=== PATIENT | male | born 1965 | race Caucasian/White ===

== ENCOUNTER → 2016-09-02 | Outpatient (CLI) | payer OTHER ==
[~2016-09-02] MED LIST: LOVA40TA2 PO; METF500T4 PO; NIAC10002 PO; OLME20TA22 PO
--- NOTE | 2016-09-03 12:40 | ECHOCARDIOGRAPHY REPORT ---
PROCEDURE PHYSICIAN: TJ PANCHAL DATE OF PROCEDURE: 09/02/2016 TWO DIMENSIONAL ECHOCARDIOGRAM REPORT PRIMARY PHYSICIAN: Dr. Shayan Calzada OTHER PHYSICIAN: REFERRING PHYSICIAN: ORDERING PHYSICIAN: INDICATION FOR THE PROCEDURE: Shortness of breath MEASUREMENTS DERIVED VALUES LV DIAMETER (LAX) NORMALS NORMALS Diastolic 4.8 (3.6-5.2) Eject. Fract. 60% (60%+/-6%) Systolic (2.3-3.9) Diastolic Vol. % Shortening (0.22-0.42) Systolic Vol. Aortic Root IVS THICKNESS Diastolic 1.2 (0.6-1.1) LVPW THICKNESS Diastolic 1.2 (0.6-1.1) LA DIAMETER Systolic 4.0 (2.1-3.7) FINDINGS: 1. Technical quality is good. 2. The left ventricle is normal in size with normal contractility. Systolic function appeared to be normal. Estimated ejection fraction 60%. 3. The left atrium is normal in size. No clot or thrombus was seen in the left atrium. 4. The right atrium and right ventricle are normal in size. No clot or thrombus were seen within the right side. 5. Mitral valve is normal in morphology with mild mitral regurgitation noted by color Doppler flow. No mitral valve prolapse. No mitral valve stenosis. 6. Aortic valve is trileaflet with normal opening and closing pattern. No significant aortic stenosis or regurgitation was seen. 7. Tricuspid valve is normal in morphology with mild tricuspid regurgitation noted by color Doppler flow. Doppler across tricuspid valve estimated pulmonary artery pressure of 22+ right atrial pressure. 8. Pulmonic valve is functioning normally. 9. No pericardial effusion. CONCLUSION: 1. Normal left ventricular size and systolic function. Estimated ejection fraction 60%. 2. Mild mitral and tricuspid regurgitation. 3. Estimated pulmonary artery pressure of 30 mmHg. Job ID: [id number] Dictated Date: 09/03/2016 11:51:03 Fertilizer Loader Date: 09/03/2016 12:35:56 / john
== END ==
LOC: CARD 08:20
PROVIDERS: ATTEND Internal Medicine Cardiovascular Disease
DX: Z01.818 Encounter for other preprocedural examination (principal); E78.2 Mixed hyperlipidemia; I10 Essential (primary) hypertension; E66.9 Obesity, unspecified; R06.02 Shortness of breath; Z82.49 Family history of ischemic heart disease and other diseases of the circulatory system; Z87.891 Personal history of nicotine dependence
CPT/HCPCS: 93306

== ENCOUNTER → 2016-09-03 | Outpatient (CLI) | payer OTHER ==
[~2016-09-03] VITALS: Ht 182.9 cm; Wt 124.7 kg
[~2016-09-03] MED LIST changes: +CATHETER FLUSH 10 ML SYR IV PRN
[2016-09-03 13:36] VITALS: BP 119/68
[2016-09-03 13:39] VITALS: BP 160/72
[2016-09-03 13:47] VITALS: BP 170/49
--- NOTE | 2016-09-03 20:49 | STRESS TEST ---
PROCEDURE PHYSICIAN: TJ PANCHAL DATE OF PROCEDURE: 09/03/2016 EXERCISE MYOVIEW STRESS TEST REPORT REFERRING PHYSICIAN: Dr. Shayan Calzada. INDICATION FOR THE PROCEDURE: Shortness of breath. BASELINE HEART RATE: 66 BASELINE BLOOD PRESSURE: 140/69 BASELINE EKG: Sinus rhythm with no ischemic changes. SUMMARY: The patient was injected with 10.03 mCi of technetium 99 Myoview and the resting images were obtained. Then the patient started exercising with a baseline heart rate, blood pressure, EKG mentioned above. At minute 7 and 30 seconds, he was injected with 29.8 mCi of technetium 99 Myoview. With peak exercise level, the patient started having ventricular couplets. He exercised for a total of 8 minutes 26 seconds on standard Nav protocol. Total of 10.1 METs, achieving maximum heart rate of 149, which is 88% of maximum expected heart rate. With peak exercise level, EKG was showing [address] depression in leads II, aVF V3, V4. During recovery, heart rate and blood pressure returned to baseline. EKG returned to baseline. The resting and stress images were reviewed and compared in the short axis, horizontal long axis, and vertical long axis views. Review of the images showed diaphragmatic attenuation with typical male pattern. No significant ischemia or infarction on SPECT images. SSS is 0. TID value 1.05. On the gated images, the left ventricle appeared to be normal size with normal contractility. Calculated ejection fraction 62%. CONCLUSION: 1. Good exercise tolerance a total of 8 minutes 25 seconds on standard Nav protocol. Total of 10.1 METs, achieving 88% of maximum expected heart rate. 2. Appropriate heart rate and blood pressure response to exercise. Returned to baseline during recovery. 3. Nondiagnostic EKG changes with exercise. Returned to baseline during recovery. 4. Typical male pattern with no ischemia or infarction on SPECT images. 5. Normal left ventricular size with normal contractility. Calculated ejection fraction 62%. Job ID: [id number] Dictated Date: 09/03/2016 16:47:31 Pet Stylist Date: 09/03/2016 20:45:47 / chuy
== END ==
LOC: CARD 11:18
PROVIDERS: ATTEND Internal Medicine Cardiovascular Disease
DX: Z01.818 Encounter for other preprocedural examination (principal); R06.02 Shortness of breath; E78.2 Mixed hyperlipidemia; I10 Essential (primary) hypertension; E66.9 Obesity, unspecified; Z82.49 Family history of ischemic heart disease and other diseases of the circulatory system; Z87.891 Personal history of nicotine dependence
CPT/HCPCS: 78452; 93017

== ENCOUNTER 2020-09-04 07:48 | Outpatient (CLI) | payer OTHER ==
[~2020-09-04] VITALS: Ht 182.9 cm; Wt 104.5 kg
[~2020-09-04 07:48] MED LIST changes: -ACHD5005 PO; -MULT-1056 PO
[2020-09-04] MEDS ORDERED: MULT-1056 PO (11:06)
== END 2020-09-04 11:14 | disposition home or self-care (01) ==
LOC: PREOP 07:48
PROVIDERS: ATTEND Surgery
DX: Z01.818 Encounter for other preprocedural examination (principal)

== ENCOUNTER → 2020-09-04 | Outpatient (CLI) | payer OTHER ==
[~2020-09-04] MED LIST changes: +ACHD5005 PO; -CATHETER FLUSH 10 ML SYR IV PRN; +METF-397 PO; -METF500T4 PO; +MULT-1056 PO; +OLME20TA21 PO; -OLME20TA22 PO
--- NOTE | 2020-09-04 19:30 | Diagnostic Imaging Report ---
EXAM: PET/CT INDICATION: Malignant neoplasm sigmoid colon. TECHNIQUE: PET/CT imaging was obtained from the base of the skull through the pelvis after the administration of 14.17 mCi of F-18 fluorodeoxyglucose injected into the right antecubital fossa. Limited CT imaging was utilized for localization and attenuation correction purposes. The low energy CT utilized for attenuation correction is not considered to be of high enough spatial resolution to allow in and of itself a separate anatomical analysis. Height: 6 feet. Weight: 228 Blood glucose 97. COMPARISON: There are no prior PET/CT exams or cross-sectional imaging studies available for comparison. By history, the patient has a recent diagnosis of sigmoid colon carcinoma. Images through the pelvis show a bulky 6.4 x 8.2 cm hypermetabolic region involving the mid sigmoid colon. This has a maximum SUV of 13 and consequently should be considered neoplastic until proven otherwise. Most likely this does correspond upon to the patient's recently diagnosed sigmoid colon carcinoma. Furthermore, there does seem to be partial obstruction of the right collecting system by the mass lesion involving the sigmoid colon. Both kidneys do show excretion of the radiopharmaceutical but there does appear to be mild hydronephrosis and hydroureter of the right kidney. I suspect that the right ureter is partially obstructed by the neoplastic mass involving the sigmoid colon. There are also at least 6 sizable roughly 1.5 cm hypermetabolic foci within the liver. These have maximum SUV values ranging from 7.8 to 10.2 and consequently these should be considered secondary to neoplastic disease as well. There is no other hypermetabolic focus seen to suggest malignancy. Physiologic activity is evident in the kidneys, bowel, bladder and brain. The CT images do show postsurgical changes involving the stomach. There is no acute abnormality identified. The bladder wall does seem thickened but this is probably due to incomplete distention as opposed to cystitis. Even so, clinical follow-up is recommended. IMPRESSION: 1. There is a large hypermetabolic mass involving the sigmoid colon. This finding should be considered neoplastic until proven otherwise. 2. There does appear to be partial obstruction of the right collecting system due to the aforementioned sigmoid mass. 3. There is also extensive metastatic disease involving the liver. 4. The thickened appearance of the bladder wall may be secondary to incomplete distention alone. The possibility that there is an element of cystitis present should also be considered. Clinical follow-up is recommended. Dictated by: Dictated on workstation # [id number]
== END ==
LOC: RAD 10:38
PROVIDERS: ATTEND Internal Medicine Hematology & Oncology
DX: C18.7 Malignant neoplasm of sigmoid colon (principal); C78.7 Secondary malignant neoplasm of liver and intrahepatic bile duct
CPT/HCPCS: 78815; A9552

== ENCOUNTER 2020-09-06 13:05 | Day surgery (SDC) | payer OTHER ==
--- NOTE | 2020-09-04 10:00 | HISTORY AND PHYSICAL ---
DATE OF SERVICE: ATTENDING PHYSICIAN: Dr. Calzada. HISTORY OF PRESENT ILLNESS: The patient is a 55-year-old male who was referred over to us for a change in bowel habits, which he reports has been occurring for the past month. He reports he has been having issues with constipation as well as the sensation of defecation or urgency. He has also had some lower abdominal pain as well as lower back pain. He did not report any red blood per rectum nor any dark tarry stools as well as no family history of any colon cancer. He states that he has never had an issue with constipation before this and states he did have a colonoscopy five years prior, which he believed to be normal. On 08/27/2020, he underwent a colonoscopy with biopsy and submucosal injection. Findings were chronic stage II external and internal hemorrhoids as well as a rectal mass approximately 12 cm from the anal verge and a mild sigmoid diverticulosis. Pathology did come back consistent with a high-grade neuroendocrine carcinoma. He did undergo a CT scan, which did show mass of the sigmoid colon along the left side as well as multiple low attenuations in the liver. There were also small lymph nodes in the pelvis and along the aorta and the retroperitoneum. There was also a right ureter that was mildly prominent in size with no urethral calcification and this did extend down near the sigmoid colon and could be related to the mass effect or direct invasive involvement causing hydronephrosis. He did see oncology yesterday who reported that he will need chemotherapy and thus will need a port placement. It was explained to the patient that we will proceed with placement of a Groshong implantable port, so that he may undergo chemotherapy. PAST MEDICAL HISTORY: Hypercholesterolemia, obesity. PAST SURGICAL HISTORY: Right forearm ORIF 2004, left thumb tendon laceration repair 2009, laparoscopic gastric sleeve resection in 2016, left open inguinal hernia repair 2004. ALLERGIES: No known drug allergies. MEDICATIONS: Multivitamin, lovastatin 40 mg daily. SOCIAL HISTORY: Positive for tobacco smoke, half pack per day for 25 years. Positive for chewing tobacco. Social for alcohol. FAMILY HISTORY: Father, hypertension. Brother, hypertension. VITAL SIGNS: Stable. Current weight 233.2 at 6 feet 0. REVIEW OF SYSTEMS: This is a well-nourished male in no acute distress. He is not experiencing any shortness of breath or difficulty breathing. No chest pain, palpitations or diaphoresis. No nausea or vomiting. He does report intermittent episodes of lower abdominal pain. He also reports constipation, but no diarrhea. No red blood per rectum. No dark tarry stools. No fever or chills. No recent inadvertent weight loss. All other review of systems negative. PHYSICAL EXAMINATION: CHEST: Clear. Good breath sounds bilaterally. HEART: Regular, no murmurs. EXTREMITIES: No lower extremity edema. Negative Homans sign. HEENT: No scleral icterus. NECK: No cervical lymphadenopathy. ABDOMEN: Soft, nontender, nondistended. SKIN: Warm, dry and pink. NEUROLOGIC: Awake, alert and oriented x3. ASSESSMENT AND PLAN: A 55-year-old male with metastatic neuroendocrine carcinoma. At this time, he is needing to undergo chemotherapy and will need a Groshong implantable port, which we will proceed with placing. The risks and benefits of the procedure as well as the procedure and home care instructions were explained to the patient. The patient verbalized understanding of instructions and agrees to proceed as planned. At this time, we will proceed with scheduling the patient for placement of a Groshong implantable port. Job ID: [id number] DocumentID: [id number] Dictated Date: 09/04/2020 09:05:33 Wire Rope Sales Representative Date: 09/04/2020 09:59:52 Dictated By: GRUPO ARIAS APRN
[~2020-09-06] VITALS: Ht 182.9 cm; Wt 104.5 kg
[2020-09-06] VITALS (7 sets, daily range): BP systolic 118–159; BP diastolic 64–93
[~2020-09-06 13:05] MED LIST changes: +MULT-1056 PO
[2020-09-06] MEDS ORDERED: HEParin (CENTRAL IV FLUSH) 500 UNIT/5 ML SYR ONE (13:34)
[2020-09-06] MEDS ORDERED: 0.9% SODIUM CHLORIDE PF INJ 20 ML VIAL ONE (13:34)
[2020-09-06] MEDS ORDERED: LIDOCAINE/EPI 1%-1:100,000 (XYLOCAINE) 20ML ONE (13:35)
[2020-09-06] MEDS ORDERED: MIDAZOLAM 2 MG/2 ML (VERSED) VIAL ONE (13:46)
[2020-09-06] MEDS ORDERED: PROPOFOL INJECTION 50 ML IV ONE (13:46)
[2020-09-06] MEDS ORDERED: fentaNYL INJ 100 MCG/2 ML AMP ONE (13:47)
[2020-09-06] MEDS ORDERED: ceFAZolin 2 GM IV Premixed 50 ML ONE (13:59)
[2020-09-06] MEDS ORDERED: LACTATED RINGERS 1,000 ML IV PRN (14:30)
[2020-09-06] MEDS ORDERED: ceFAZolin 2 GM IV Premixed 50 ML IV ONE (15:45)
[2020-09-06] MEDS ORDERED: HYDROmorphone 2 MG/ML VIAL (DILAUDID) ONE (15:58)
--- NOTE | 2020-09-06 16:00 | Progress Note-Pre Operative ---
Pre-Operative Progress Note H&P Reviewed The H&P was reviewed, patient examined and no changes noted. Date Seen by Provider: Sep 06, 2020 Time Seen by Provider: 15:00 Date H&P Reviewed: Sep 06, 2020 Time H&P Reviewed: 15:00 Pre-Operative Diagnosis: rectal neuroendocrine tumor LEE STRAUSS MD Sep 06, 2020 16:00
--- NOTE | 2020-09-06 16:02 | Discharge Inst-Surgical ---
D/C Lap Instructions-KIDAlmaz New, Converted, or Re-Newed RX: RX on Chart Follow Up Appt in 2 weeks Activity as tolerated Regular Diet Symptoms to Report: Fever over 101 degree F, Nausea/Vomiting Infection Signs and Symptoms to report: Increased redness, Foul odor of wound, Increased drainage Bathing instructions: May shower Operative Area Clean/Dry; Keep incision clean/dry If any problems/questions: Contact your physician or go to Emergency Room LEE STRAUSS MD Sep 06, 2020 16:02
[2020-09-06] MEDS ORDERED: oxyCODONE/APAP 5/325MG (PERCOCET 5) TABLET PO PRN (16:15)
[2020-09-06] MEDS ORDERED: ONDANSETRON 4 MG/2 ML (SDV) Z0FRAN IVP PRN ×2 (16:15→17:00)
[2020-09-06] MEDS ORDERED: ACETAMINOPHEN 325 MG TABLET PO PRN (16:15)
[2020-09-06] MEDS ORDERED: morphine INJ 10 MG/ML 1ML (SYR OR VIAL) IVP PRN ×2 (16:15)
--- NOTE | 2020-09-06 16:51 | Anesthesia-General Post-Op ---
MAC Patient Condition Mental Status/LOC: Same as Preop Cardiovascular: Satisfactory Nausea/Vomiting: Absent Respiratory: Satisfactory Pain: Controlled Complications: Absent Post Op Complications Complications None Follow Up Care/Instructions Patient Instructions None needed. Anesthesiology Discharge Order Discharge Order Patient is doing well, no complaints, stable vital signs, no apparent adverse anesthesia problems. No complications reported per nursing. FERNANDO PARKS CRNA Sep 06, 2020 16:50
[2020-09-06] MEDS ORDERED: HYDROmorphone 2 MG/ML VIAL (DILAUDID) IV ONE (17:00)
--- NOTE | 2020-09-06 17:07 | Progress Note-Post Operative ---
Post-Operative Progess Note Surgeon (s)/Music Coordinator (s) Surgeon LEE STRAUSS MD Music Coordinator: none Pre-Operative Diagnosis rectal neuroendocrine tumor Post-Operative Diagnosis same Procedure & Operative Findings Date of Procedure 09/06/20 Procedure Performed/Findings left subclavian groshong implantable catheter placement under flouroscopy. Anesthesia Type mac with local Estimated Blood Loss Estimated blood loss (mL): minimal Specimens/Packing Specimens Removed none LEE STRAUSS MD Sep 06, 2020 17:07
--- NOTE | 2020-09-06 17:10 | Diagnostic Imaging Report ---
Indication: Port placement. Findings: 7 seconds of fluoroscopy time utilized during catheter placement. Impression: Fluoroscopy during catheter placement. Dictated by: Dictated on workstation # [id number]
[2020-09-06] MEDS ORDERED: ACHD5005 PO (17:22)
--- NOTE | 2020-09-06 17:22 | Diagnostic Imaging Report ---
EXAMINATION: Chest radiograph, portable AP view. DATE: 09/06/2020 5:14 PM INDICATION: 55-year-old male, port placement. COMPARISON: None. FINDINGS: There is a left-sided port catheter. The catheter tip appears to be at the level of the upper SVC. Heart size and mediastinal contours are unremarkable. There is no identified thorax. There is no large pleural effusion. There is no identified focal airspace consolidation. IMPRESSION: 1. Left-sided port catheter tip at the level of the upper SVC. 2. No identified acute cardiopulmonary abnormality. Dictated by: Dictated on workstation # [id number]
--- NOTE | 2020-09-07 01:42 | OPERATIVE REPORT ---
DATE OF SERVICE: 09/06/2020 ATTENDING PRIMARY CARE PHYSICIAN: Shayan Calzada DO PREOPERATIVE DIAGNOSIS: Rectal neuroendocrine tumor. POSTOPERATIVE DIAGNOSIS: Rectal neuroendocrine tumor. PROCEDURE: Placement of left subclavian Groshong implantable catheter under fluoroscopy. SURGEON: Lee Mchugh MD. SYSTEM CONTROLLER: Dante Potter APRN. ANESTHESIA: Monitored anesthesia care with local. ESTIMATED BLOOD LOSS: Minimal. FINDINGS: Catheter tip at superior vena caval -- right atrial junction. DISPOSITION: The patient tolerated the procedure well. INDICATIONS: The patient is a 55-year-old male who was referred over to us for change in bowel habits, which had been occurring for several months with constipation as well as the sensation of incomplete evacuation after defecating. On 08/27/2020, he underwent a colonoscopy and found to have a large lesion of the rectum approximately 12 cm from the anal verge, which was biopsied and came back as a high-grade neuroendocrine carcinoma. He will require a Groshong implantable catheter for chemotherapy. DESCRIPTION OF PROCEDURE: The patient was brought to the operating room, laid supine on the table. After adequate IV pain and sedative medications and monitored anesthesia care, the chest and neck were prepped and draped in standard surgical fashion. A 1% lidocaine with epinephrine was used to anesthetize the overlying skin in the left subclavian region. The left subclavian vein was then cannulated withdrawing of venous blood and the guidewire was inserted without any resistance under fluoroscopy. Cannulating needle removed and a skin incision made using a 15 blade. The dilator and sheath were then introduced over the guidewire. The guidewire and the dilator were then removed and the Groshong catheter placed until the catheter tip was at the superior vena caval -- right atrial junction and then the sheath was removed. The inner wire within the catheter was then removed and the catheter cut down to size and port placed onto the catheter. We then proceeded with creation of the chest reservoir by extending the incision laterally with a 15 blade and creating a plane between the subcutaneous fat and the anterior pectoralis fascia using electrocautery as well as blunt dissection. The port was then placed in the reservoir and sutured to the anterior pectoralis fascia using interrupted 3-0 Vicryl sutures. Subcutaneous tissue was then reapproximated using 3-0 Vicryl interrupted sutures and the skin was closed using 4-0 Monocryl running subcuticular suture. The port was then accessed with a Ramos needle withdrawing of venous blood and heparinized saline pushed in without any resistance. The patient tolerated the procedure well. We will start IV normal pain medication as well as a clear liquid diet and once tolerating clears and has adequate pain control, he may be discharged home and the port may be accessed and used at any time. Job ID: [id number] DocumentID: [id number] Dictated Date: 09/06/2020 17:12:34 Borderer Date: 09/07/2020 01:41:40 Dictated By: LEE MCHUGH MD
== END 2020-09-06 18:10 | disposition home or self-care (01) ==
LOC: SDC 13:05
PROVIDERS: ATTEND Surgery
DX: D3A.8 Other benign neuroendocrine tumors (principal); E78.00 Pure hypercholesterolemia, unspecified; E66.9 Obesity, unspecified; Z68.31 Body mass index [BMI] 31.0-31.9, adult; F17.210 Nicotine dependence, cigarettes, uncomplicated; Z79.899 Other long term (current) drug therapy; Z91.09 Other allergy status, other than to drugs and biological substances; Z82.49 Family history of ischemic heart disease and other diseases of the circulatory system
CPT/HCPCS: 36561; 71045; 76000; 87081; C1788

== ENCOUNTER → 2020-10-19 | Outpatient (CLI) | payer OTHER ==
[~2020-10-19] MED LIST changes: +ACHD5005 PO; +CATHETER FLUSH 10 ML SYR IV PRN; +HOLD METFORMIN - RECEIVED CONTRAST 20 ML VIAL IV SCH; +IOHEXOL 350 MG/ML 100 ML (OMNIPAQUE 350) VIAL IV ONE; +NS 100 ML (IVPB) BAG IV ONE
--- NOTE | 2020-10-19 10:51 | Diagnostic Imaging Report ---
PROCEDURE: CT chest with contrast, CT abdomen and pelvis with and without contrast. TECHNIQUE: Pre and post intravenous contrast axial imaging of the abdomen and pelvis and post contrast axial imaging of the chest were performed. Auto Exposure Controls were utilized during the CT exam to meet ALARA standards for radiation dose reduction. INDICATION: Malignant neoplasm of the rectum and back pain. COMPARISON is made with recent PET/CT study from 09/04/2020. CT CHEST: Left chest wall port is noted and has its tip at the SVC right atrial junction. No axillary lymphadenopathy is identified. No mediastinal or hilar lymphadenopathy is identified. No pericardial or pleural fluid is detected. No pulmonary nodules or masses are seen. There are no infiltrates detected. IMPRESSION: 1. Unremarkable CT of the chest. No thoracic lymphadenopathy or evidence of pulmonary metastatic disease is identified. CT ABDOMEN AND PELVIS: Multiple low-density but solid masses within the liver are noted consistent with hepatic metastatic disease. A lesion in the posterior dome of the right lobe measures 3.5 cm. A lesion along the periphery of the inferior right lobe measures 4.1 x 2.7 cm. Gallbladder is unremarkable. There is no biliary ductal dilatation. Pancreas and spleen are unremarkable. There is no adrenal mass. The left kidney is unremarkable. There is right-sided hydroureteronephrosis. This is likely caused by distal obstruction due to a large sigmoid mass noted on PET CT study recently. Obstruction appears to be fairly high-grade as no contrast is seen within the collecting system or ureter on the right side on the delayed images. Aorta is nonaneurysmal. No central retroperitoneal or mesenteric lymphadenopathy is seen. Bowel loops are normal caliber. A large mass in the pelvis measures approximately 10 cm x 8 cm and appears to be arising from the sigmoid. There is marked thickening of the rectum as well. There is moderate stool in the colon. No free fluid or fluid collection is seen. No definite pelvic lymphadenopathy is identified. Prostate is unremarkable. Bladder is decompressed. Bony structures are nonacute. IMPRESSION: Large sigmoid colon mass consistent with neoplasm. There is also significant circumferential thickening of the rectum. Sigmoid mass does appear to produce high-grade obstruction of the distal right ureter with moderate right-sided hydroureteronephrosis. Hepatic metastatic disease. Dictated by: Dictated on workstation # [id number]
== END ==
LOC: RAD 08:23
PROVIDERS: ATTEND Internal Medicine Hematology & Oncology
DX: C20 Malignant neoplasm of rectum (principal); C78.7 Secondary malignant neoplasm of liver and intrahepatic bile duct
CPT/HCPCS: 71260; 74178

== ENCOUNTER 2020-10-29 06:25 | Outpatient (CLI) | payer OTHER ==
[~2020-10-29] VITALS: Ht 182.9 cm; Wt 104.4 kg
[~2020-10-29 06:25] MED LIST changes: -CATHETER FLUSH 10 ML SYR IV PRN; -HOLD METFORMIN - RECEIVED CONTRAST 20 ML VIAL IV SCH; -IOHEXOL 350 MG/ML 100 ML (OMNIPAQUE 350) VIAL IV ONE; -NS 100 ML (IVPB) BAG IV ONE
[2020-10-29] MEDS ORDERED: ONDA4TAB11 PO (08:36)
[2020-10-29] MEDS ORDERED: VITA1CAP PO (08:36)
[2020-10-29] MEDS ORDERED: PANT40TA52 PO (08:36)
[2020-10-29] MEDS ORDERED: NF-VITD400 PO (08:36)
[2020-10-30] MEDS ORDERED: TMSL.4C PO (09:04)
[2020-10-30] MEDS ORDERED: NITR-65 PO (09:04)
[2020-10-30] MEDS ORDERED: PHEN-639 PO (09:04)
== END 2020-10-29 08:45 | disposition home or self-care (01) ==
LOC: PREOP 06:25
PROVIDERS: ATTEND Urology
DX: Z01.818 Encounter for other preprocedural examination (principal)

== ENCOUNTER 2020-10-30 06:17 | Day surgery (SDC) | payer OTHER ==
[2020-10-30] VITALS (10 sets, daily range): BP systolic 147–176; BP diastolic 86–103
[~2020-10-30] VITALS: Ht 182.9 cm; Wt 104.4 kg
[~2020-10-30 06:17] MED LIST changes: +NF-VITD400 PO; +ONDA4TAB11 PO; +PANT40TA52 PO; +VITA1CAP PO
[2020-10-30] MEDS ORDERED: cefTRIAXone FOR IV USE 1,000 MG in WATER (STERILE) FOR INJECTION 10 ML IV ONE (06:30)
[2020-10-30] MEDS ORDERED: LACTATED RINGERS 1,000 ML IV PRN (06:30)
--- NOTE | 2020-10-30 07:02 | Progress Note-Pre Operative ---
Pre-Operative Progress Note H&P Reviewed The H&P was reviewed, patient examined and no changes noted. Date Seen by Provider: October 30, 2020 Time Seen by Provider: 07:02 Date H&P Reviewed: October 30, 2020 Time H&P Reviewed: 07:02 Pre-Operative Diagnosis: RT DISTAL URETERAL OBSTRUCTION ADAMARIS WHITMORE MD October 30, 2020 07:02
[2020-10-30] MEDS ORDERED: ROCURONIUM 10 MG/ML 5 ML SYRINGE IV ONE (07:05)
[2020-10-30] MEDS ORDERED: SEVOFLURANE (ULTANE) 15 ML INHAL SOLN ONE (07:05)
[2020-10-30] MEDS ORDERED: proPOfol 200 MG/20 ML (DIPRIVAN) VIAL IV ONE (07:05)
[2020-10-30] MEDS ORDERED: NEOSTIGMINE 3 MG/3 ML VIAL ONE (07:05)
[2020-10-30] MEDS ORDERED: GLYCOPYRROLATE 0.2 MG/ML (ROBINUL) 2 ML VIAL ONE (07:05)
[2020-10-30] MEDS ORDERED: LIDOCAINE PF 2% 5 ML (XYLOCAINE) VIAL ONE (07:05)
[2020-10-30] MEDS ORDERED: ONDANSETRON 4 MG/2 ML (SDV) Z0FRAN ONE (07:05)
[2020-10-30] MEDS ORDERED: MIDAZOLAM 2 MG/2 ML (VERSED) VIAL ONE (07:06)
[2020-10-30] MEDS ORDERED: fentaNYL INJ 100 MCG/2 ML AMP ONE ×2 (07:06→08:22)
--- NOTE | 2020-10-30 08:46 | Progress Note-Post Operative ---
Post-Operative Progess Note Surgeon (s)/Physical Therapy Supervisor (s) Surgeon ADAMARIS WHITMORE MD Physical Therapy Supervisor: NONE Pre-Operative Diagnosis RT DISTAL URETERAL OBSTRUCTION Post-Operative Diagnosis SAME Procedure & Operative Findings Date of Procedure 10/30/20 Procedure Performed/Findings CYSTOSCOPY WITH INSERTION OF RT URETERAL STENT Anesthesia Type GENERAL Estimated Blood Loss Estimated blood loss (mL): NONE Specimens/Packing Specimens Removed NONE Packing: NONE ADAMARIS WHITMORE MD October 30, 2020 08:46
--- NOTE | 2020-10-30 08:47 | Discharge Inst-Urology ---
Discharge Inst-Urology Reconcile Patient Problems Problems Reviewed?: Yes Final Diagnosis RT URETERAL OBSTRUCTION Patient Instructions/Follow Up Plan/Assessment/Instructions Please make appointment to been seen in office in 4 weeks. Increase oral fluids for 48 hours and then as needed. Diet and Activity as tolerated. If questions or concerns contact your physician Or seek help at emergency department. ADAMARIS WHITMORE MD October 30, 2020 08:47
[2020-10-30] MEDS ORDERED: ONDANSETRON 4 MG/2 ML (SDV) Z0FRAN IVP PRN (09:00)
[2020-10-30] MEDS ORDERED: morphine INJ 10 MG/ML 1ML (SYR OR VIAL) IVP ONE (09:00)
[2020-10-30] MEDS ORDERED: TMSL.4C PO (09:04)
[2020-10-30] MEDS ORDERED: PHEN-639 PO (09:04)
[2020-10-30] MEDS ORDERED: NITR-65 PO (09:04)
--- NOTE | 2020-10-30 11:48 | OPERATIVE REPORT ---
DATE OF SERVICE: 10/30/2020 PREOPERATIVE DIAGNOSIS: Right distal ureteral obstruction. POSTOPERATIVE DIAGNOSIS: Right distal ureteral obstruction. OPERATION PERFORMED: Cystoscopy and insertion of right ureteral stent. SURGEON: Adamaris Whitmore MD. ANESTHESIA: General. COMPLICATIONS: None. DESCRIPTION OF PROCEDURE: Under satisfactory general anesthesia and the patient in lithotomy position, genitalia were prepped and draped in the usual sterile fashion. Then, attempted to pass a 23-Georgian cystoscope, met resistance at the meatus, which was dilated with Rosalinda sound from 22 to 26 admitting the scope. Anterior urethra was normal. The prostate was not enlarged, but there was a high riding bar. I entered the bladder, which revealed some trabeculations. Ureteric orifices were normal with clear efflux, sluggish on the right side. No bladder tumor or stone visualized. Using the foroblique lens, I passed a 6-Georgian 26 cm stent into the right ureteral orifice, guided fluoroscopically easily all the way to the renal pelvis. The guidewire was removed and the stent was seen draining nicely proximally fluoroscopically and distally endoscopically. The bladder was evacuated and the cystoscope was removed. The patient tolerated the procedure and anesthesia well and was sent to the recovery room in a stable condition. Job ID: [id number] DocumentID: [id number] Dictated Date: 10/30/2020 08:52:32 Head Of Geography Date: 10/30/2020 11:47:56 Dictated By: ADAMARIS WHITMORE MD
--- NOTE | 2020-10-30 14:50 | Anesthesia-General Post-Op ---
General Patient Condition Mental Status/LOC: Same as Preop Cardiovascular: Satisfactory Nausea/Vomiting: Absent Respiratory: Satisfactory Pain: Controlled Complications: Absent Post Op Complications Complications None Follow Up Care/Instructions Patient Instructions None needed. Anesthesia/Patient Condition Patient Condition Patient was seen this morning after the procedure and he was doing well, no complaints, stable vital signs, no apparent adverse anesthesia problems. TRISTON REGALADO DO October 30, 2020 14:50
== END 2020-10-30 12:40 | disposition home or self-care (01) ==
LOC: SDC 06:17
PROVIDERS: ATTEND Urology
DX: N13.5 Crossing vessel and stricture of ureter without hydronephrosis (principal); N32.89 Other specified disorders of bladder; N40.0 Benign prostatic hyperplasia without lower urinary tract symptoms; K21.9 Gastro-esophageal reflux disease without esophagitis; Z79.899 Other long term (current) drug therapy; Z85.038 Personal history of other malignant neoplasm of large intestine; Z80.1 Family history of malignant neoplasm of trachea, bronchus and lung
CPT/HCPCS: 52332; 76000; 87081; C2625

== ENCOUNTER → 2020-11-27 | Outpatient (CLI) | payer OTHER ==
[~2020-11-27] MED LIST changes: +NITR-65 PO; +PHEN-639 PO; +TMSL.4C PO
--- NOTE | 2020-11-27 15:11 | Diagnostic Imaging Report ---
INDICATION: Rectal carcinoma with subsequent restaging treatment response. Serum blood glucose level at the time of injection is 113 mg/dL. Patient was administered 13.8 mCi [id number] intravenously in the right antecubital location and PET imaging was performed from the top of the skull to mid thighs. Noncontrast CT was also performed for attenuation correction and anatomic correlation. CORRELATION is made with recent CT of the chest, abdomen and pelvis on 10/19/2020 as well as prior PET/CT study from 09/04/2020. There is symmetric activity throughout the brain. Soft tissues of the neck are unremarkable. No definite hypermetabolic mediastinal or hilar lymphadenopathy is seen. No pulmonary parenchymal hypermetabolism is identified. There are numerous hypermetabolic masses within the liver, largest in the inferior right lobe with an SUV max of proximally 19. Patient also has developed hypermetabolic lymphadenopathy in the portacaval region with an enlarged portacaval node demonstrating SUV max of approximately 11. There is also new central retroperitoneal hypermetabolic lymphadenopathy in the aortocaval and left periaortic location. The largest node in the aortocaval region demonstrates SUV max of 11.8. There continues to be some hypermetabolism involving the known sigmoid mass however this has improved. There is activity throughout the gastrointestinal tract including the rectum which may be physiologic. No definite inguinal or iliac hypermetabolic lymphadenopathy is seen. IMPRESSION: Worsening hepatic metastatic disease. Patient has also developed portacaval and central retroperitoneal hypermetabolic lymphadenopathy since prior PET/CT from 09/04/2020. Dictated by: Dictated on workstation # [id number]
== END ==
LOC: RAD 11:15
PROVIDERS: ATTEND Internal Medicine Hematology & Oncology
DX: C20 Malignant neoplasm of rectum (principal); C78.7 Secondary malignant neoplasm of liver and intrahepatic bile duct; N13.30 Unspecified hydronephrosis; R59.0 Localized enlarged lymph nodes
CPT/HCPCS: 78815; A9552

== ENCOUNTER 2020-11-30 12:52 | Outpatient (RCR) | payer OTHER ==
[2020-09-03 15:04] LABS: BASOPHILS # (AUTO) 0.1 10^3/uL (0.0-0.1); BASOPHILS % (AUTO) 1 % (0-10); EOSINOPHILS # (AUTO) 0.3 10^3/uL (0.0-0.3); EOSINOPHILS % (AUTO) 2 % (0-10); HEMATOCRIT 42 % (40-54); HEMOGLOBIN 13.7 g/dL (13.3-17.7); LYMPHOCYTES # (AUTO) 1.9 10^3/uL (1.0-4.0); LYMPHOCYTES % (AUTO) 14 % (12-44); MEAN CORPUSCULAR HEMOGLOBIN 30 pg (25-34); MEAN CORPUSCULAR HGB CONC 33 g/dL (32-36); MEAN CORPUSCULAR VOLUME 90 fL (80-99); MEAN PLATELET VOLUME 8.7 fL (9.0-12.2); MONOCYTES # (AUTO) 1.4 10^3/uL (0.0-1.0); MONOCYTES % (AUTO) 10 % (0-12); NEUTROPHILS # (AUTO) 10.3 10^3/uL (1.8-7.8); NEUTROPHILS % (AUTO) 73 % (42-75); PLATELET COUNT 333 10^3/uL (130-400); WHITE BLOOD COUNT 14.1 10^3/uL (4.3-11.0)
[2020-09-03 15:23] LABS: ALANINE AMINOTRANSFERASE 12 U/L (0-55); ALKALINE PHOSPHATASE 66 U/L (40-136); BILIRUBIN,TOTAL 0.3 MG/DL (0.1-1.0); BUN/CREATININE RATIO 15; CALCIUM 9.1 MG/DL (8.5-10.1); CARBON DIOXIDE 22 MMOL/L (21-32); CHLORIDE 108 MMOL/L (98-107); CREATININE SERUM 0.92 MG/DL (0.60-1.30); GFR ESTIMATED > 60; GLUCOSE 96 MG/DL (70-105); SODIUM 141 MMOL/L (135-145); TOTAL PROTEIN 7.5 GM/DL (6.4-8.2)
[2020-09-10 13:12] LABS: BASOPHILS # (AUTO) 0.1 10^3/uL (0.0-0.1); BASOPHILS % (AUTO) 1 % (0-10); EOSINOPHILS # (AUTO) 0.3 10^3/uL (0.0-0.3); EOSINOPHILS % (AUTO) 2 % (0-10); HEMATOCRIT 40 % (40-54); HEMOGLOBIN 13.4 g/dL (13.3-17.7); LYMPHOCYTES # (AUTO) 2.7 10^3/uL (1.0-4.0); LYMPHOCYTES % (AUTO) 16 % (12-44); MEAN CORPUSCULAR HEMOGLOBIN 30 pg (25-34); MEAN CORPUSCULAR HGB CONC 33 g/dL (32-36); MEAN CORPUSCULAR VOLUME 90 fL (80-99); MEAN PLATELET VOLUME 8.8 fL (9.0-12.2); MONOCYTES # (AUTO) 1.6 10^3/uL (0.0-1.0); MONOCYTES % (AUTO) 9 % (0-12); NEUTROPHILS # (AUTO) 12.1 10^3/uL (1.8-7.8); NEUTROPHILS % (AUTO) 71 % (42-75); PLATELET COUNT 325 10^3/uL (130-400); WHITE BLOOD COUNT 17.1 10^3/uL (4.3-11.0)
[2020-09-10 13:40] LABS: BUN/CREATININE RATIO 21; CALCIUM 8.9 MG/DL (8.5-10.1); CARBON DIOXIDE 23 MMOL/L (21-32); CHLORIDE 104 MMOL/L (98-107); CREATININE SERUM 0.85 MG/DL (0.60-1.30); GFR ESTIMATED > 60; GLUCOSE 98 MG/DL (70-105); POTASSIUM 3.8 MMOL/L (3.6-5.0); SODIUM 140 MMOL/L (135-145)
[2020-09-28 09:29] LABS: BASOPHILS # (AUTO) 0.1 10^3/uL (0.0-0.1); BASOPHILS % (AUTO) 0 % (0-10); EOSINOPHILS % (AUTO) 0 % (0-10); HEMATOCRIT 35 % (40-54); HEMOGLOBIN 11.5 g/dL (13.3-17.7); LYMPHOCYTES # (AUTO) 1.7 10^3/uL (1.0-4.0); LYMPHOCYTES % (AUTO) 10 % (12-44); MEAN CORPUSCULAR HEMOGLOBIN 29 pg (25-34); MEAN CORPUSCULAR HGB CONC 33 g/dL (32-36); MEAN CORPUSCULAR VOLUME 90 fL (80-99); MEAN PLATELET VOLUME 8.8 fL (9.0-12.2); MONOCYTES # (AUTO) 2.3 10^3/uL (0.0-1.0); MONOCYTES % (AUTO) 14 % (0-12); NEUTROPHILS # (AUTO) 11.9 10^3/uL (1.8-7.8); NEUTROPHILS % (AUTO) 71 % (42-75); PLATELET COUNT 239 10^3/uL (130-400); WHITE BLOOD COUNT 16.7 10^3/uL (4.3-11.0)
[2020-09-28 09:57] LABS: ALANINE AMINOTRANSFERASE 16 U/L (0-55); ALBUMIN 3.9 GM/DL (3.2-4.5); ALKALINE PHOSPHATASE 84 U/L (40-136); BILIRUBIN,TOTAL 0.3 MG/DL (0.1-1.0); BUN/CREATININE RATIO 14; CALCIUM 8.6 MG/DL (8.5-10.1); CARBON DIOXIDE 22 MMOL/L (21-32); CHLORIDE 101 MMOL/L (98-107); CREATININE SERUM 1.07 MG/DL (0.60-1.30); GFR ESTIMATED > 60; GLUCOSE 119 MG/DL (70-105); SODIUM 133 MMOL/L (135-145); TOTAL PROTEIN 7.2 GM/DL (6.4-8.2)
--- NOTE | 2020-10-15 17:00 | Diagnostic Imaging Report ---
INDICATION: Abdominal pain and distention. PA chest, supine and upright abdominal images were obtained. FINDINGS: The lungs are clear. There are surgical breanna at the GE junction. There is no intraperitoneal free air. Bowel gas pattern is normal. There is a moderate amount of fecal retention in the colon. There are no pathologic masses or calcifications. IMPRESSION: Fecal stasis. Dictated by: Dictated on workstation # [id number]
[2020-10-19 11:05] LABS: BASOPHILS # (AUTO) 0.1 10^3/uL (0.0-0.1); BASOPHILS % (AUTO) 0 % (0-10); EOSINOPHILS % (AUTO) 0 % (0-10); HEMATOCRIT 30 % (40-54); HEMOGLOBIN 9.6 g/dL (13.3-17.7); LYMPHOCYTES # (AUTO) 1.4 10^3/uL (1.0-4.0); LYMPHOCYTES % (AUTO) 7 % (12-44); MEAN CORPUSCULAR HEMOGLOBIN 29 pg (25-34); MEAN CORPUSCULAR HGB CONC 32 g/dL (32-36); MEAN CORPUSCULAR VOLUME 90 fL (80-99); MEAN PLATELET VOLUME 8.9 fL (9.0-12.2); MONOCYTES # (AUTO) 1.6 10^3/uL (0.0-1.0); MONOCYTES % (AUTO) 8 % (0-12); NEUTROPHILS # (AUTO) 17.9 10^3/uL (1.8-7.8); NEUTROPHILS % (AUTO) 82 % (42-75); PLATELET COUNT 268 10^3/uL (130-400); WHITE BLOOD COUNT 21.7 10^3/uL (4.3-11.0)
[2020-10-19 11:24] LABS: ALBUMIN 3.7 GM/DL (3.2-4.5); BILIRUBIN,TOTAL 0.3 MG/DL (0.1-1.0); CALCIUM 8.3 MG/DL (8.5-10.1); CREATININE SERUM 1.25 MG/DL (0.60-1.30); POTASSIUM 3.7 MMOL/L (3.6-5.0); TOTAL PROTEIN 6.9 GM/DL (6.4-8.2)
[2020-10-31 13:00] LABS: BASOPHILS % (AUTO) 0 % (0-10); EOSINOPHILS % (AUTO) 0 % (0-10); HEMATOCRIT 22 % (40-54); HEMOGLOBIN 7.4 g/dL (13.3-17.7); LYMPHOCYTES # (AUTO) 0.8 10^3/uL (1.0-4.0); LYMPHOCYTES % (AUTO) 9 % (12-44); MEAN CORPUSCULAR HEMOGLOBIN 29 pg (25-34); MEAN CORPUSCULAR HGB CONC 33 g/dL (32-36); MEAN CORPUSCULAR VOLUME 88 fL (80-99); MEAN PLATELET VOLUME 8.5 fL (9.0-12.2); MONOCYTES # (AUTO) 1.5 10^3/uL (0.0-1.0); MONOCYTES % (AUTO) 16 % (0-12); NEUTROPHILS # (AUTO) 6.8 10^3/uL (1.8-7.8); NEUTROPHILS % (AUTO) 73 % (42-75); PLATELET COUNT 178 10^3/uL (130-400); WHITE BLOOD COUNT 9.4 10^3/uL (4.3-11.0)
[2020-10-31 13:18] LABS: BUN/CREATININE RATIO 15; CARBON DIOXIDE 25 MMOL/L (21-32); CHLORIDE 99 MMOL/L (98-107); CREATININE SERUM 0.96 MG/DL (0.60-1.30); POTASSIUM 3.3 MMOL/L (3.6-5.0); SODIUM 133 MMOL/L (135-145)
[2020-10-31 13:19] LABS: ALANINE AMINOTRANSFERASE 12 U/L (0-55); ALBUMIN 3.6 GM/DL (3.2-4.5); ALKALINE PHOSPHATASE 78 U/L (40-136); BILIRUBIN,TOTAL 0.2 MG/DL (0.1-1.0); CALCIUM 8.6 MG/DL (8.5-10.1); GFR ESTIMATED > 60; GLUCOSE 93 MG/DL (70-105); TOTAL PROTEIN 6.6 GM/DL (6.4-8.2)
[2020-11-09 10:57] LABS: BASOPHILS % (AUTO) 0 % (0-10); EOSINOPHILS % (AUTO) 0 % (0-10); MEAN PLATELET VOLUME 9.2 fL (9.0-12.2); NEUTROPHILS % (AUTO) 76 % (42-75)
[2020-11-09 10:59] LABS: HEMATOCRIT 24 % (40-54); HEMOGLOBIN 7.9 g/dL (13.3-17.7); LYMPHOCYTES # (AUTO) 0.6 10^3/uL (1.0-4.0); LYMPHOCYTES % (AUTO) 6 % (12-44); MEAN CORPUSCULAR HEMOGLOBIN 30 pg (25-34); MEAN CORPUSCULAR HGB CONC 33 g/dL (32-36); MEAN CORPUSCULAR VOLUME 90 fL (80-99); MONOCYTES # (AUTO) 1.4 10^3/uL (0.0-1.0); MONOCYTES % (AUTO) 14 % (0-12); NEUTROPHILS # (AUTO) 7.2 10^3/uL (1.8-7.8); PLATELET COUNT 147 10^3/uL (130-400); WHITE BLOOD COUNT 9.5 10^3/uL (4.3-11.0)
[2020-11-09 11:19] LABS: ALANINE AMINOTRANSFERASE 13 U/L (0-55); ALBUMIN 3.8 GM/DL (3.2-4.5); ALKALINE PHOSPHATASE 86 U/L (40-136); BILIRUBIN,TOTAL 0.2 MG/DL (0.1-1.0); BUN/CREATININE RATIO 12; CARBON DIOXIDE 23 MMOL/L (21-32); CHLORIDE 100 MMOL/L (98-107); CREATININE SERUM 1.06 MG/DL (0.60-1.30); GFR ESTIMATED > 60; GLUCOSE 109 MG/DL (70-105); POTASSIUM 3.5 MMOL/L (3.6-5.0); SODIUM 136 MMOL/L (135-145); TOTAL PROTEIN 7.1 GM/DL (6.4-8.2)
[2020-11-20 12:55] LABS: BASOPHILS % (AUTO) 0 % (0-10); HEMATOCRIT 22 % (40-54); MEAN CORPUSCULAR HGB CONC 33 g/dL (32-36)
[2020-11-20 12:57] LABS: EOSINOPHILS % (AUTO) 1 % (0-10); LYMPHOCYTES # (AUTO) 0.2 10^3/uL (1.0-4.0); LYMPHOCYTES % (AUTO) 7 % (12-44); MEAN CORPUSCULAR HEMOGLOBIN 29 pg (25-34); MEAN CORPUSCULAR VOLUME 90 fL (80-99); MEAN PLATELET VOLUME 9.3 fL (9.0-12.2); MONOCYTES # (AUTO) 0.5 10^3/uL (0.0-1.0); MONOCYTES % (AUTO) 16 % (0-12); NEUTROPHILS # (AUTO) 2.2 10^3/uL (1.8-7.8); NEUTROPHILS % (AUTO) 75 % (42-75); PLATELET COUNT 100 10^3/uL (130-400)
[2020-11-20 13:17] LABS: ALANINE AMINOTRANSFERASE 12 U/L (0-55); ALBUMIN 3.6 GM/DL (3.2-4.5); ALKALINE PHOSPHATASE 83 U/L (40-136); BILIRUBIN,TOTAL 0.3 MG/DL (0.1-1.0); BUN/CREATININE RATIO 15; CALCIUM 8.8 MG/DL (8.5-10.1); CARBON DIOXIDE 22 MMOL/L (21-32); CHLORIDE 101 MMOL/L (98-107); CREATININE SERUM 0.82 MG/DL (0.60-1.30); GFR ESTIMATED > 60; GLUCOSE 184 MG/DL (70-105); POTASSIUM 3.5 MMOL/L (3.6-5.0); SODIUM 135 MMOL/L (135-145); TOTAL PROTEIN 6.6 GM/DL (6.4-8.2)
[~2020-11-30] VITALS: Ht 182.9 cm; Wt 103.4 kg
[~2020-11-30 12:52] MED LIST changes: +CARBOPLATIN IV SCH; +ETOPOSIDE IV SCH; +FOSAPREPITANT (CANCER CENTER) 150 MG in NS (IVPB) CANCER CENTER ONLY 150 ML IV SCH; +IRON SUCROSE 100 MG/5 ML (VENOFER) VIAL CANCER CTR IV SCH; +NS IV 1000 ML (CANCER CTR) IV SCH; +NS IV 500 ML (CANCER CENTER) 500 ML ONE; +NS IV SCH; +PEGFILGRASTIM 6 MG/0.6 ML ONPRO KIT SQ SCH
[2020-11-30 13:44] LABS: BASOPHILS % (AUTO) 0 % (0-10)
[2020-11-30 13:46] LABS: EOSINOPHILS % (AUTO) 1 % (0-10); HEMATOCRIT 23 % (40-54); HEMOGLOBIN 7.4 g/dL (13.3-17.7); LYMPHOCYTES # (AUTO) 0.4 10^3/uL (1.0-4.0); LYMPHOCYTES % (AUTO) 8 % (12-44); MEAN CORPUSCULAR HEMOGLOBIN 31 pg (25-34); MEAN CORPUSCULAR HGB CONC 33 g/dL (32-36); MEAN CORPUSCULAR VOLUME 93 fL (80-99); MONOCYTES % (AUTO) 19 % (0-12); NEUTROPHILS # (AUTO) 3.5 10^3/uL (1.8-7.8); NEUTROPHILS % (AUTO) 66 % (42-75); PLATELET COUNT 82 10^3/uL (130-400); WHITE BLOOD COUNT 5.4 10^3/uL (4.3-11.0)
[2020-11-30 14:04] LABS: ALANINE AMINOTRANSFERASE 13 U/L (0-55); ALBUMIN 3.6 GM/DL (3.2-4.5); ALKALINE PHOSPHATASE 72 U/L (40-136); BILIRUBIN,TOTAL 0.2 MG/DL (0.1-1.0); BUN/CREATININE RATIO 14; CALCIUM 8.9 MG/DL (8.5-10.1); CARBON DIOXIDE 24 MMOL/L (21-32); CHLORIDE 103 MMOL/L (98-107); GFR ESTIMATED > 60; GLUCOSE 98 MG/DL (70-105); POTASSIUM 3.4 MMOL/L (3.6-5.0); SODIUM 139 MMOL/L (135-145); TOTAL PROTEIN 6.7 GM/DL (6.4-8.2)
== END 2020-12-02 | disposition home or self-care (01) ==
LOC: ONC 12:52
PROVIDERS: ATTEND Internal Medicine Hematology & Oncology
DX: C7A.026 Malignant carcinoid tumor of the rectum (principal)
CPT/HCPCS: 80053; 85025; G0463; 36430; 36591; 74022; 77280; 77290; 77295; 77300; 77334; 77336; 77417; 77470; 80048; 82728; 83540; 83550; 86850; 86900; 86901; 86920; 96367; 96372; 96374; 96375; 96377; 96413; 96417; 99204; 99213; 99214; J2505

== ENCOUNTER 2020-12-17 14:23 | Outpatient (RCR) | payer OTHER ==
[2020-12-11 10:03] LABS: BASOPHILS % (AUTO) 1 % (0-10); EOSINOPHILS % (AUTO) 0 % (0-10); HEMATOCRIT 28 % (40-54); HEMOGLOBIN 8.5 g/dL (13.3-17.7); LYMPHOCYTES # (AUTO) 0.7 10^3/uL (1.0-4.0); LYMPHOCYTES % (AUTO) 8 % (12-44); MEAN CORPUSCULAR HEMOGLOBIN 31 pg (25-34); MEAN CORPUSCULAR HGB CONC 31 g/dL (32-36); MEAN CORPUSCULAR VOLUME 99 fL (80-99); MEAN PLATELET VOLUME 8.8 fL (9.0-12.2); MONOCYTES # (AUTO) 1.4 10^3/uL (0.0-1.0); MONOCYTES % (AUTO) 17 % (0-12); NEUTROPHILS # (AUTO) 5.9 10^3/uL (1.8-7.8); NEUTROPHILS % (AUTO) 73 % (42-75); PLATELET COUNT 306 10^3/uL (130-400); WHITE BLOOD COUNT 8.1 10^3/uL (4.3-11.0)
[~2020-12-17 14:23] MED LIST changes: -CARBOPLATIN IV SCH; -ETOPOSIDE IV SCH; -FOSAPREPITANT (CANCER CENTER) 150 MG in NS (IVPB) CANCER CENTER ONLY 150 ML IV SCH; -IRON SUCROSE 100 MG/5 ML (VENOFER) VIAL CANCER CTR IV SCH; -NS IV 1000 ML (CANCER CTR) IV SCH; -NS IV 500 ML (CANCER CENTER) 500 ML ONE; -NS IV SCH; -PEGFILGRASTIM 6 MG/0.6 ML ONPRO KIT SQ SCH
[2020-12-17 14:36] LABS: BASOPHILS % (AUTO) 1 % (0-10); EOSINOPHILS # (AUTO) 0.1 10^3/uL (0.0-0.3); EOSINOPHILS % (AUTO) 1 % (0-10); HEMATOCRIT 27 % (40-54); HEMOGLOBIN 8.7 g/dL (13.3-17.7); LYMPHOCYTES # (AUTO) 0.6 10^3/uL (1.0-4.0); LYMPHOCYTES % (AUTO) 7 % (12-44); MEAN CORPUSCULAR HEMOGLOBIN 31 pg (25-34); MEAN CORPUSCULAR HGB CONC 32 g/dL (32-36); MEAN CORPUSCULAR VOLUME 98 fL (80-99); MEAN PLATELET VOLUME 8.4 fL (9.0-12.2); MONOCYTES # (AUTO) 1.5 10^3/uL (0.0-1.0); MONOCYTES % (AUTO) 18 % (0-12); NEUTROPHILS # (AUTO) 5.8 10^3/uL (1.8-7.8); NEUTROPHILS % (AUTO) 72 % (42-75); PLATELET COUNT 350 10^3/uL (130-400); WHITE BLOOD COUNT 8.1 10^3/uL (4.3-11.0)
[2020-12-17 14:56] LABS: ALANINE AMINOTRANSFERASE 22 U/L (0-55); ALBUMIN 3.8 GM/DL (3.2-4.5); ALKALINE PHOSPHATASE 115 U/L (40-136); BILIRUBIN,TOTAL 0.2 MG/DL (0.1-1.0); BUN/CREATININE RATIO 15; CALCIUM 9.1 MG/DL (8.5-10.1); CARBON DIOXIDE 24 MMOL/L (21-32); CHLORIDE 106 MMOL/L (98-107); GFR ESTIMATED > 60; GLUCOSE 111 MG/DL (70-105); POTASSIUM 3.7 MMOL/L (3.6-5.0); SODIUM 139 MMOL/L (135-145); TOTAL PROTEIN 7.2 GM/DL (6.4-8.2)
== END 2020-12-21 13:42 | disposition home or self-care (01) ==
LOC: ONC 14:23
PROVIDERS: ATTEND Internal Medicine Hematology & Oncology
DX: Z51.11 Encounter for antineoplastic chemotherapy (principal); C7A.025 Malignant carcinoid tumor of the sigmoid colon; C78.7 Secondary malignant neoplasm of liver and intrahepatic bile duct; D64.9 Anemia, unspecified; G89.3 Neoplasm related pain (acute) (chronic); Z92.3 Personal history of irradiation; Z92.21 Personal history of antineoplastic chemotherapy; Z79.899 Other long term (current) drug therapy; F17.210 Nicotine dependence, cigarettes, uncomplicated
CPT/HCPCS: 80053; 85025; 99213

== ENCOUNTER → 2021-01-04 | Outpatient (CLI) | payer OTHER ==
[~2021-01-04] MED LIST changes: +CATHETER FLUSH 10 ML SYR IV PRN; +HOLD METFORMIN - RECEIVED CONTRAST 20 ML VIAL IV SCH; +HYDR-3820 PO; +IOHEXOL 350 MG/ML 100 ML (OMNIPAQUE 350) VIAL IV ONE; +NS 100 ML (IVPB) BAG IV ONE; +POLY17PO6 PO
--- NOTE | 2021-01-04 13:03 | Diagnostic Imaging Report ---
PROCEDURE: CT chest with contrast, CT abdomen and pelvis with and without contrast. TECHNIQUE: Pre and post intravenous contrast axial imaging of the abdomen and pelvis and post contrast axial imaging of the chest were performed. Auto Exposure Controls were utilized during the CT exam to meet ALARA standards for radiation dose reduction. INDICATION: Rectal carcinoma, restaging. COMPARISON: Correlation is made with prior CT from 10/19/2020. FINDINGS: Left chest wall port is in place. No axillary lymphadenopathy is identified. There is no mediastinal or hilar lymphadenopathy. No pericardial fluid is identified. There is a very small right pleural effusion which appears new since prior CT. The lungs remain clear. No nodules or masses are seen to suggest metastatic disease. There is some minimal scarring in the lingula and left lower lobe as well as the right lower lobe. IMPRESSION: 1. No evidence of thoracic lymphadenopathy. 2. No definite evidence of pulmonary metastatic disease. 3. Development of small right pleural effusion. CT ABDOMEN AND PELVIS: There has been significant increase in number and size of numerous hepatic masses throughout the right and left lobes. A mass in the peripheral right lobe measures 11.8 x 7.2 cm compared with 4.1 x 2.7 cm on prior. There are also masses along the liver capsule now, largest along the right lobe liver capsule measuring approximately 7.0 x 2.5 cm. Gallbladder is unremarkable. There is no biliary ductal dilatation. Pancreas and spleen are unremarkable. No adrenal mass is detected. Kidneys are unremarkable, although the right kidney now contains a double-J nephroureteral stent extending to the bladder. There has been development of adenopathy in the saeid hepatis and portacaval region. Portacaval node measures approximately 3.7 cm. There are enlarged lymph nodes in the central retroperitoneum as well which has significantly increased. A yeimy mass in the right lower quadrant below the lower pole of the right kidney measures approximately 7.4 x 5.6 cm. There are additional smaller nodules throughout the peritoneal cavity as well. Bowel loops are nonobstructed. Mass involving the sigmoid colon is again noted. Overall size of the mass does appear to be slightly decreased but is difficult to measure. Thickening of the rectum is again noted. There is no free fluid or fluid collection identified. No definite inguinal lymphadenopathy is seen. There is a right inguinal hernia which does show some areas of nodularity and increased density throughout the inguinal canal on the right which could represent adenopathy. Bony structures are unremarkable. IMPRESSION: 1. Worsening hepatic metastatic disease. 2. There has been development of peritoneal implants along the liver capsule as well as the right lower quadrant suggestive of peritoneal carcinomatosis. There has been development of saeid hepatis as well as portacaval and central retroperitoneal lymphadenopathy. Right-sided hydronephrosis is now improved status post placement of a double-J nephroureteral stent. In addition, primary sigmoid neoplasm does appear to be smaller when compared with prior CT. There is some nodular increased density throughout the right inguinal canal extending into the upper right scrotum which is indeterminate. This could represent adenopathy within the inguinal canal. Dictated by: Dictated on workstation # [id number]
== END ==
LOC: CARD 12:00
PROVIDERS: ATTEND Internal Medicine Hematology & Oncology
DX: Z51.11 Encounter for antineoplastic chemotherapy (principal); Z01.810 Encounter for preprocedural cardiovascular examination; C20 Malignant neoplasm of rectum; C78.7 Secondary malignant neoplasm of liver and intrahepatic bile duct; J90 Pleural effusion, not elsewhere classified; N13.30 Unspecified hydronephrosis; R59.0 Localized enlarged lymph nodes
CPT/HCPCS: 71260; 74178; 93306

== ENCOUNTER 2021-01-08 10:50 | Outpatient (CLI) | payer OTHER ==
[~2021-01-08] VITALS: Ht 182.9 cm; Wt 101.2 kg
[~2021-01-08 10:50] MED LIST changes: -CATHETER FLUSH 10 ML SYR IV PRN; -HOLD METFORMIN - RECEIVED CONTRAST 20 ML VIAL IV SCH; -HYDR-3820 PO; -IOHEXOL 350 MG/ML 100 ML (OMNIPAQUE 350) VIAL IV ONE; -NS 100 ML (IVPB) BAG IV ONE; -POLY17PO6 PO
[2021-01-08] MEDS ORDERED: LOVA40TA2 PO (11:58)
[2021-01-08] MEDS ORDERED: POLY17PO6 PO (11:58)
[2021-01-08] MEDS ORDERED: HYDR-3820 PO (11:58)
== END 2021-01-08 12:53 | disposition home or self-care (01) ==
LOC: PREOP 10:50
PROVIDERS: ATTEND Surgery
DX: Z01.818 Encounter for other preprocedural examination (principal)

== ENCOUNTER 2021-01-09 11:10 | Day surgery (SDC) | payer OTHER ==
[2021-01-09] VITALS (12 sets, daily range): BP systolic 131–158; BP diastolic 72–96
[~2021-01-09] VITALS: Ht 182.9 cm; Wt 101.2 kg
--- NOTE | 2021-01-09 06:04 | HISTORY AND PHYSICAL ---
DATE OF SERVICE: DATE OF ADMISSION: 01/09/2021 ATTENDING PRIMARY CARE PHYSICIAN: Shayan Calzada DO HISTORY OF PRESENT ILLNESS: The patient is a 55-year-old male, who presented to his physician's office with pain and swelling in the right inguinal region. He was doing some lifting exertion at that time. There was also pain to follow. Upon examination, he was found to have an incarcerated right inguinal hernia. He is otherwise states besides the pain, he is eating well and having bowel movements. He does not report any fever or chills. He also has an open left inguinal hernia repair done around 2010. Upon examination, he does have an incarcerated right inguinal hernia; however, no signs of strangulation. PAST MEDICAL HISTORY: Hypercholesterolemia, history of metastatic rectal cancer. PAST SURGICAL HISTORY: Laparoscopic gastric sleeve resections in 2016, open left inguinal hernia repair in 2010, right arm ORIF, right ureteral stent placement. ALLERGIES: No known drug allergies. MEDICATIONS: Lovastatin daily. SOCIAL HISTORY: Previous smoker, quit 2020, 40 pack years. Negative alcohol. FAMILY HISTORY: Noncontributory. VITAL SIGNS: Stable, afebrile. REVIEW OF SYSTEMS: A well-nourished male currently in no acute distress. He is not experiencing any shortness of breath or difficulty breathing. No chest pain, palpitations, diaphoresis. No nausea, vomiting, no diarrhea or constipation, no red blood per rectum, no dark tarry stools. No fever, chills, no recent inadvertent weight loss. All other review of systems negative. PHYSICAL EXAMINATION: CHEST: Clear. Good breath sounds bilaterally. HEART: Regular, no murmurs. EXTREMITIES: No lower extremity edema, negative Homans sign. HEENT: No scleral icterus. NECK: No cervical lymphadenopathy. ABDOMEN: Soft, nontender, nondistended. There is an incarcerated right inguinal hernia identified, which was tender to palpation. There is no overlying redness or erythema. No left inguinal hernia component. SKIN: Warm, dry. ASSESSMENT AND PLAN: A 55-year-old male with an incarcerated symptomatic right inguinal hernia. We will schedule him for a laparoscopic right inguinal hernia repair with mesh. He also will be instructed to do no heavy lifting or exertion for the next several weeks. Job ID: [id number] DocumentID: [id number] Dictated Date: 01/07/2021 18:25:39 Anatomy Teacher Date: 01/07/2021 18:52:22 Dictated By: LEE STRAUSS MD
[~2021-01-09 11:10] MED LIST changes: +HYDR-3820 PO; +POLY17PO6 PO
[2021-01-09] MEDS ORDERED: ceFAZolin 2 GM IV Premixed 50 ML IV ONE (11:45)
--- NOTE | 2021-01-09 12:27 | Progress Note-Pre Operative ---
Pre-Operative Progress Note H&P Reviewed The H&P was reviewed, patient examined and no changes noted. Date Seen by Provider: Jan 09, 2021 Time Seen by Provider: 12:00 Date H&P Reviewed: Jan 09, 2021 Time H&P Reviewed: 12:00 Pre-Operative Diagnosis: incarcerated right ing hernia LEE STRAUSS MD Jan 09, 2021 12:27
--- NOTE | 2021-01-09 12:28 | Discharge Inst-Surgical ---
D/C Lap Instructions-CARLOS A Follow Up Appt in 2 weeks Activity as tolerated No driving for 24 hours No driving while on pain medications Incentive Spirometry use every 2 hours while awake Regular Diet Symptoms to Report: Fever over 101 degree F, Nausea/Vomiting Infection Signs and Symptoms to report: Increased redness, Foul odor of wound, Increased drainage Bathing instructions: May shower Operative Area Clean/Dry; Keep incision clean/dry If any problems/questions: Contact your physician or go to Emergency Room LEE STRAUSS MD Jan 09, 2021 12:28
[2021-01-09] MEDS ORDERED: oxyCODONE/APAP 5/325MG (PERCOCET 5) TABLET PO PRN (12:30)
[2021-01-09] MEDS ORDERED: morphine INJ 10 MG/ML 1ML (SYR OR VIAL) IVP PRN ×2 (12:30)
[2021-01-09] MEDS ORDERED: ONDANSETRON 4 MG/2 ML (SDV) Z0FRAN IVP PRN ×2 (12:30→15:15)
[2021-01-09] MEDS ORDERED: ACETAMINOPHEN 325 MG TABLET PO PRN (12:30)
[2021-01-09] MEDS: LACTATED RINGERS 1,000 ML IV PRN ×2 (12:35→14:46)
[2021-01-09] MEDS ORDERED: proPOfol 200 MG/20 ML (DIPRIVAN) VIAL IV ONE (12:44)
[2021-01-09] MEDS ORDERED: SEVOFLURANE (ULTANE) 15 ML INHAL SOLN ONE ×2 (12:44→14:41)
[2021-01-09] MEDS ORDERED: ROCURONIUM 10 MG/ML 5 ML SYRINGE IV ONE (12:44)
[2021-01-09] MEDS ORDERED: MIDAZOLAM 2 MG/2 ML (VERSED) VIAL ONE (12:44)
[2021-01-09] MEDS ORDERED: ONDANSETRON 4 MG/2 ML (SDV) Z0FRAN ONE (12:44)
[2021-01-09] MEDS ORDERED: LIDOCAINE PF 2% 5 ML (XYLOCAINE) VIAL ONE (12:44)
[2021-01-09] MEDS ORDERED: fentaNYL INJ 100 MCG/2 ML AMP ONE ×2 (12:44→14:28)
[2021-01-09] MEDS ORDERED: LIDOCAINE/EPI 1%-1:100,000 (XYLOCAINE) 20ML ONE (13:01)
[2021-01-09] MEDS ORDERED: HYDROmorphone 2 MG/ML VIAL (DILAUDID) ONE (13:51)
[2021-01-09] MEDS ORDERED: GLYCOPYRROLATE 0.2 MG/ML (ROBINUL) 2 ML VIAL ONE (14:23)
[2021-01-09] MEDS ORDERED: KETOROLAC 30 MG/ML VIAL ONE (14:25)
[2021-01-09] MEDS ORDERED: NEOSTIGMINE 3 MG/3 ML VIAL ONE (14:25)
--- NOTE | 2021-01-09 15:03 | Progress Note-Post Operative ---
Post-Operative Progess Note Surgeon (s)/Building Certifier (s) Surgeon LEE STRAUSS MD Building Certifier: none Pre-Operative Diagnosis incarcerated right ing hernia Post-Operative Diagnosis right inguinal mass(6x5cm) Procedure & Operative Findings Date of Procedure 01/09/21 Procedure Performed/Findings diagnostic laparoscopy. excision right inguinal mass(6x5cm) Anesthesia Type get Estimated Blood Loss Estimated blood loss (mL): minimal Specimens/Packing Specimens Removed right inguinal mass LEE STRAUSS MD Jan 09, 2021 15:03
--- NOTE | 2021-01-09 15:10 | Anesthesia-General Post-Op ---
General Patient Condition Mental Status/LOC: Same as Preop Cardiovascular: Satisfactory Nausea/Vomiting: Absent Respiratory: Satisfactory Pain: Controlled Complications: Absent Post Op Complications Complications None Follow Up Care/Instructions Patient Instructions None needed. Anesthesia/Patient Condition Patient Condition Patient is doing well, no complaints, stable vital signs, no apparent adverse anesthesia problems. No complications reported per nursing. D/C home per [facility] [place]: Yes FERNANDO PARKS CRNA Jan 09, 2021 15:10
[2021-01-09] MEDS ORDERED: HYDROmorphone 2 MG/ML VIAL (DILAUDID) IV ONE (15:15)
--- NOTE | 2021-01-09 22:44 | OPERATIVE REPORT ---
DATE OF SERVICE: 01/09/2021 ATTENDING PRIMARY CARE PHYSICIAN: Shayan Calzada DO PREOPERATIVE DIAGNOSIS: Incarcerated right inguinal hernia. POSTOPERATIVE DIAGNOSIS: Right inguinal mass approximately 5 x 6 cm in size concerning for neoplasm. PROCEDURE: Excision of right deep inguinal mass adjacent to the spermatic cord, diagnostic laparoscopy. SURGEON: Lee Strauss MD ANESTHESIA: General endotracheal. ESTIMATED BLOOD LOSS: Minimal. FINDINGS: Liver metastasis. No peritoneal carcinomatosis. No inguinal hernias, Hard right inguinal mass within the inguinal canal adjacent to the spermatic cord concerning for neoplasm. DISPOSITION: The patient tolerated the procedure well. INDICATIONS: The patient is a 55-year-old male, who presented to his physician's office with pain and swelling in the right inguinal region. He states that he was doing some lifting and exertion at the time and there was a palpable bulge as well as significant amount of pain. Upon examination, what was believed to be incarcerated right inguinal hernia. He states besides the pain, he is eating well, having normal bowel movements. He does not report any fever or chills. He states that he did have an open inguinal hernia repair on the left side around 2010. DESCRIPTION OF PROCEDURE: The patient was brought to the operating room, laid supine on the table. A 0.5% Marcaine with epinephrine was used to anesthetize the overlying skin in the umbilical region and a transverse skin incision made using a 15 blade. An 0 silk suture was applied to the superior portion of the umbilicus for retraction and a Veress needle inserted with a low opening pressure of 0 mmHg and the abdomen was then insufflated to 15 mmHg pressure. The Veress needle removed and a 10 mm XL trocar placed followed by a 10 mm 45-degree angle laparoscope visualizing the peritoneal cavity. The ink margin with previous colonoscopy with a rectal mass was seen. There was a small amount of ascites within the pelvis. There was no significant inguinal hernia component. However, the palpable mass in the inguinal region was identifiable and hard and likely represented some component of the malignancy. The liver metastases were also identified under laparoscopy. At this time, it was decided to proceed with an open excision of the symptomatic right inguinal mass. The 10 mm port site fascia and peritoneum were then closed under direct visualization using a Thai-Chitra device and 0 Vicryl suture and the abdomen was desufflated. An oblique skin incision was made using a 15 blade. Subcutaneous tissue was then dissected using electrocautery. The mass was adjacent to the spermatic cord and its surrounding contents. We then proceeded with gentle retraction of the mass and dissection of the mass away from the spermatic cords from the surrounding vasculature using blunt dissection as well as electrocautery and Metzenbaum scissors. The mass was large and approximately 5 x 6 cm in size and extended into the external ring of the inguinal canal. The mass was then fully excised and sent to pathology. Good hemostasis was observed. The area was palpated, there was no inguinal hernia component identified. The subcutaneous tissue was then reapproximated using 3-0 Vicryl interrupted sutures. All skin incisions were then closed using 4-0 Monocryl running subcuticular sutures. Wounds were then cleaned and covered with Dermabond. The patient tolerated the procedure well. We will start IV normal pain medication as well as a clear liquid diet. Once he is tolerating clear liquids, has good pain control with oral pain medications, he is ambulating well, we will discharge him home. We will await the biopsy results as well. Job ID: [id number] DocumentID: [id number] Dictated Date: 01/09/2021 14:47:23 Railway Track Worker Date: 01/09/2021 22:43:10 Dictated By: LEE STRAUSS MD [facility]
== END 2021-01-09 17:15 | disposition home or self-care (01) ==
LOC: SDC 11:10
PROVIDERS: ATTEND Surgery
DX: C7A.1 Malignant poorly differentiated neuroendocrine tumors (principal); E78.00 Pure hypercholesterolemia, unspecified; Z79.899 Other long term (current) drug therapy
CPT/HCPCS: 87081; 88307

== ENCOUNTER 2021-02-25 15:32 | Inpatient (IN) | payer OTHER ==
[~2021-02-25] VITALS: Ht 182.8 cm; Wt 94.5 kg
[2021-02-25] MEDS ORDERED: NS IV 1000 ML 1,000 ML IV SCH ×2 (16:15→23:30)
[2021-02-25] MEDS ORDERED: IBUPROFEN 600 MG (MOTRIN) TAB PO ONE (16:15)
[2021-02-25 16:21] LABS: BASOPHILS % (AUTO) 0 % (0-10); EOSINOPHILS % (AUTO) 0 % (0-10); HEMATOCRIT 35 % (40-54); LYMPHOCYTES # (AUTO) 0.8 10^3/uL (1.0-4.0); LYMPHOCYTES % (AUTO) 4 % (12-44); MEAN CORPUSCULAR HEMOGLOBIN 27 pg (25-34); MEAN CORPUSCULAR HGB CONC 31 g/dL (32-36); MEAN CORPUSCULAR VOLUME 85 fL (80-99); MEAN PLATELET VOLUME 9.1 fL (9.0-12.2); MONOCYTES # (AUTO) 1.6 10^3/uL (0.0-1.0); MONOCYTES % (AUTO) 9 % (0-12); NEUTROPHILS # (AUTO) 16.1 10^3/uL (1.8-7.8); NEUTROPHILS % (AUTO) 87 % (42-75); PLATELET COUNT 280 10^3/uL (130-400); WHITE BLOOD COUNT 18.6 10^3/uL (4.3-11.0)
--- NOTE | 2021-02-25 16:23 | ED Abdominal Pain ---
General Chief Complaint: Abdominal/GI Problems Stated Complaint: CA PT/FEVER/ABD PAIN Nursing Triage Note: PT TO RM 6 BY WHEELCHAIR WITH COMPLAINT OF ABD PAIN AND FEVER. STATES STARTED A FEW DAYS AGO. PT H NEUROENDOCRINE CANCER AND HAS BEEN ON A CLINICAL TRIAL THROUGH . 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 Daughter is present in room and states that he has had chronic right upper quadrant abdominal pain due to metastasis to his liver for several months since his diagnosis in August 2020. He does take scheduled Morphine ER 15mg every 12 hours at home and Oxycodone 10mg every 4 hours for breakthrough pain. States he is currently treated through the [facility] in conjunction with [facility] for his neuroendocrine carcinoma. He is currently in the MATCH trial. Has not taken anything other than his scheduled medications prior to arrival. Denies chest pain, shortness of breath, nausea, vomiting. Has had both of his COVID vaccines. No known exposure. (ISAIAH SAMANIEGO APRN) Allergies and Home Medications Allergies Coded Allergies: eucalyptus (Verified Allergy, Unknown, 09/06/20) Patient Home Medication List Home Medication List Reviewed: Yes (ISAIAH SAMANIEGO APRN) Hydrocodone/Acetaminophen (Hydrocodone-Acetamin 10-325 mg) 1 Each Tablet, 1 EACH PO Q4H PRN for PAIN-MODERATE (5-7), (Reported) Entered as Reported by: ARGELIA PATTON on 01/08/21 1158 Lovastatin (Lovastatin) 40 Mg Tablet, 40 MG PO HS, (Reported) Entered as Reported by: ARGELIA PATTON on 01/08/21 1158 Multivit-Min/FA/Lycopen/Lutein (Men 50 Plus Multivitamin Tab) 1 Each Tablet, 1 EACH PO DAILY, (Reported) Entered as Reported by: VITO CORBIN on 09/04/20 1106 Polyethylene Glycol 3350 (Miralax) 17 Gm Powd.pack, 17 GM PO HS, (Reported) Entered as Reported by: ARGELIA PATTON on 01/08/21 1158 Vitamin B Complex (Vitamin B Complex) 1 Each Capsule, 1 EACH PO DAILY, (Reported) Entered as Reported by: ARGELIA PATTON on 10/29/20 0836 Vitamin D (Vitamin D3) Unknown Strength Tablet, Unknown Dose PO DAILY, (Reported) Entered as Reported by: ARGELIA PATTON on 10/29/20 0836 Review of Systems Review of Systems Constitutional: chills, fever, malaise, weakness EENTM: No Symptoms Reported Respiratory: No Symptoms Reported Cardiovascular: No Symptoms Reported Gastrointestinal: Abdomen Distended, Abdominal Pain, Constipated; Denies Difficulty Swallowing, Denies Nausea, Denies Vomiting Genitourinary: No Symptoms Reported Musculoskeletal: no symptoms reported Skin: no symptoms reported Psychiatric/Neurological: No Symptoms Reported Endocrine: Unexplaned Weight Loss Hematologic/Lymphatic: Anemia (ISAIAH SAMANIEGO APRN) Past Lwxqqkf-Hrjcpz-Lbscmo Hx Patient Social History Tobacco Use?: No Use of E-Cig and/or Vaping dev: No Substance use?: No Alcohol Use?: No Pt feels they are or have been: No (ISAIHA SAMANIEGO APRN) Immunizations Up To Date Influenza Vaccine Up-to-Date: No; Not Current First/Initial COVID19 Vaccinat: AUGUST 2020 Second COVID19 Vaccination Erwin: AUGUST 2020 COVID19 Vaccine Personal Financial Counselor: MODERNAndrea (ISAIAH SAMNAIEGO APRN) Seasonal Allergies Seasonal Allergies: Yes (ISAIAH SAMANIEGO APRN) Past Medical History Surgeries: Yes (L ING HERNIA, orif arm, SKIN RAFT R FOOT, TENDON REPAIR THUMB, gastric slee) Abdominal, Orthopedic Respiratory: No Currently Using CPAP: No Currently Using BIPAP: No Cardiac: Yes High Cholesterol Neurological: No Genitourinary: No Gastrointestinal: No Musculoskeletal: No Endocrine: No HEENT: Yes (WEARS GLASSES) Cancer: Yes (CURRENT COLON CANCER) Rectal, Colon Psychosocial: No Integumentary: Yes (PSORIASIS OF THE FEET) Psoriasis Blood Disorders: Yes (ANEMIA) (ISAIAH SAMANIEGO APRN) Physical Exam Vital Signs Vital Signs - First Documented 02/25/21 15:45 Temp 39.2 Pulse 138 Resp 22 B/P (MAP) 156/89 (111) Pulse Ox 94 O2 Delivery Room Air (ARLEEN PATTON MD) Vital Signs Capillary Refill : Less Than 3 Seconds (ISAIAH SAMANIEGO APRN) Height/Weight/BMI Height: 6'0.00" Weight: 275lbs. 0.0oz. 124.200529pg; 29.00 BMI Method: General Appearance: WD/WN, no apparent distress HEENT: PERRL/EOMI, normal ENT inspection, pharynx normal Neck: full range of motion, normal inspection Respiratory: lungs clear, normal breath sounds, no respiratory distress, no accessory muscle use Cardiovascular: regular rate, rhythm, no edema, no gallop; No friction rub Peripheral Pulses: 2+ Radial Pulses (R), 2+ Radial Pulses (L) Gastrointestinal: normal bowel sounds, distended, tenderness (diffuse), hepatomegaly Extremities: normal range of motion, non-tender, normal inspection Back: normal inspection, no vertebral tenderness Neurologic/Psychiatric: no motor/sensory deficits, alert, normal mood/affect, oriented x 3 Skin: normal color, warm/dry, pallor (ISAIAH SAMANIEGO APRN) Focused Exam Lactate Level 02/25/21 22:20: Lactic Acid Level 2.30*H 02/26/21 00:32: Lactic Acid Level 2.26*H 02/26/21 04:36: Lactic Acid Level 2.20*H (ARLEEN PATTON MD) Lactic Acid Level Laboratory Tests Test 02/25/21 16:12 02/25/21 18:05 02/25/21 22:20 02/26/21 00:32 Lactic Acid Level 3.77 MMOL/L (0.50-2.00) *H 3.36 MMOL/L (0.50-2.00) *H 2.30 MMOL/L (0.50-2.00) *H 2.26 MMOL/L (0.50-2.00) *H Test 02/26/21 04:36 Lactic Acid Level 2.20 MMOL/L (0.50-2.00) *H (ARLEEN PATTON MD) Progress/Results/Core Measures Results/Orders Lab Results Laboratory Tests Test 02/25/21 16:12 02/25/21 18:05 02/25/21 18:10 02/25/21 22:20 Range/Units White Blood Count 18.6 H 4.3-11.0 10^3/uL Red Blood Count 4.13 L 4.30-5.52 10^6/uL Hemoglobin 11.0 L 13.3-17.7 g/dL Hematocrit 35 L 40-54 % Mean Corpuscular Volume 85 80-99 fL Mean Corpuscular Hemoglobin 27 25-34 pg Mean Corpuscular Hemoglobin Concent 31 L 32-36 g/dL Red Cell Distribution Width 19.1 H 10.0-14.5 % Platelet Count 280 130-400 10^3/uL Mean Platelet Volume 9.1 9.0-12.2 fL Immature Granulocyte % (Auto) 0 % Neutrophils (%) (Auto) 87 H 42-75 % Lymphocytes (%) (Auto) 4 L 12-44 % Monocytes (%) (Auto) 9 0-12 % Eosinophils (%) (Auto) 0 0-10 % Basophils (%) (Auto) 0 0-10 % Neutrophils # (Auto) 16.1 H 1.8-7.8 10^3/uL Lymphocytes # (Auto) 0.8 L 1.0-4.0 10^3/uL Monocytes # (Auto) 1.6 H 0.0-1.0 10^3/uL Eosinophils # (Auto) 0.0 0.0-0.3 10^3/uL Basophils # (Auto) 0.0 0.0-0.1 10^3/uL Immature Granulocyte # (Auto) 0.1 0.0-0.1 10^3/uL Neutrophils % (Manual) 84 % Lymphocytes % (Manual) 6 % Monocytes % (Manual) 10 % Anisocytosis SLIGHT Prothrombin Time 17.4 H 12.2-14.7 SEC INR Comment 1.4 0.8-1.4 Activated Partial Thromboplast Time 43 H 24-35 SEC Sodium Level 125 *L 135-145 MMOL/L Potassium Level 3.9 3.6-5.0 MMOL/L Chloride Level 91 L 98-107 MMOL/L Carbon Dioxide Level 20 L 21-32 MMOL/L Anion Gap 14 5-14 MMOL/L Blood Urea Nitrogen 14 7-18 MG/DL Creatinine 1.06 0.60-1.30 MG/DL Estimat Glomerular Filtration Rate 72 BUN/Creatinine Ratio 13 Glucose Level 212 H 70-105 MG/DL Lactic Acid Level 3.77 *H 3.36 *H 2.30 *H 0.50-2.00 MMOL/L Calcium Level 8.4 L 8.5-10.1 MG/DL Corrected Calcium 9.0 8.5-10.1 MG/DL Total Bilirubin 0.9 0.1-1.0 MG/DL Aspartate Amino Transf (AST/SGOT) 199 H 5-34 U/L Alanine Aminotransferase (ALT/SGPT) 56 H 0-55 U/L Alkaline Phosphatase 377 H 40-136 U/L Lactate Dehydrogenase 9007 H 125-220 U/L Total Protein 6.7 6.4-8.2 GM/DL Albumin 3.2 3.2-4.5 GM/DL Procalcitonin 19.89 H <0.10 NG/ML Urine Color YELLOW Urine Clarity CLEAR Urine pH 6.0 5-9 Urine Specific [place] 1.015 L 1.016-1.022 Urine Protein 1+ H NEGATIVE Urine Glucose (UA) NEGATIVE NEGATIVE Urine Ketones NEGATIVE NEGATIVE Urine Nitrite NEGATIVE NEGATIVE Urine Bilirubin NEGATIVE NEGATIVE Urine Urobilinogen 1.0 < = 1.0 MG/DL Urine Leukocyte Esterase NEGATIVE NEGATIVE Urine RBC (Auto) TRACE-I NEGATIVE Urine RBC RARE /HPF Urine WBC NONE /HPF Urine Squamous Epithelial Cells NONE /HPF Urine Crystals NONE /LPF Urine Bacteria NEGATIVE /HPF Urine Casts PRESENT /LPF Urine Hyaline Casts 2-5 H /LPF Urine Mucus NEGATIVE /LPF Urine Culture Indicated NO Test 02/26/21 00:32 02/26/21 04:36 Range/Units Lactic Acid Level 2.26 *H 2.20 *H 0.50-2.00 MMOL/L White Blood Count 14.6 H 4.3-11.0 10^3/uL Red Blood Count 3.71 L 4.30-5.52 10^6/uL Hemoglobin 9.8 L 13.3-17.7 g/dL Hematocrit 31 L 40-54 % Mean Corpuscular Volume 83 80-99 fL Mean Corpuscular Hemoglobin 26 25-34 pg Mean Corpuscular Hemoglobin Concent 32 32-36 g/dL Red Cell Distribution Width 18.7 H 10.0-14.5 % Platelet Count 187 130-400 10^3/uL Mean Platelet Volume 9.8 9.0-12.2 fL Immature Granulocyte % (Auto) 1 % Neutrophils (%) (Auto) 84 H 42-75 % Lymphocytes (%) (Auto) 5 L 12-44 % Monocytes (%) (Auto) 11 0-12 % Eosinophils (%) (Auto) 0 0-10 % Basophils (%) (Auto) 0 0-10 % Neutrophils # (Auto) 12.2 H 1.8-7.8 10^3/uL Lymphocytes # (Auto) 0.7 L 1.0-4.0 10^3/uL Monocytes # (Auto) 1.6 H 0.0-1.0 10^3/uL Eosinophils # (Auto) 0.0 0.0-0.3 10^3/uL Basophils # (Auto) 0.0 0.0-0.1 10^3/uL Immature Granulocyte # (Auto) 0.1 0.0-0.1 10^3/uL Activated Partial Thromboplast Time 71 H 24-35 SEC Sodium Level 128 L 135-145 MMOL/L Potassium Level 3.4 L 3.6-5.0 MMOL/L Chloride Level 98 98-107 MMOL/L Carbon Dioxide Level 17 L 21-32 MMOL/L Anion Gap 13 5-14 MMOL/L Blood Urea Nitrogen 15 7-18 MG/DL Creatinine 0.77 0.60-1.30 MG/DL Estimat Glomerular Filtration Rate 105 BUN/Creatinine Ratio 19 Glucose Level 126 H 70-105 MG/DL Calcium Level 8.2 L 8.5-10.1 MG/DL C-Reactive Protein High Sensitivity 26.57 H 0.00-0.50 MG/DL Procalcitonin 40.44 H <0.10 NG/ML (ARLEEN PATTON MD) My Orders Orders - ARLEEN PATTON MD Basic Metabolic Panel (02/26/21 04:30) Cbc With Automated Diff (02/26/21 04:30) Hs C Reactive Protein (02/26/21 04:30) Procalcitonin (Pct) (02/26/21 04:30) Partial Thromboplastin Time (02/26/21 04:30) Piperacillin Sodium/Tazobactam (Zosyn Vi (02/26/21 04:29) Ns (Ivpb) (Sodium Chloride 0.9% Ivpb Bag (02/26/21 04:31) (ARLEEN PATTON MD) Medications Given in ED Current Medications Medications Dose Ordered Sig/Holli Route Start Time Stop Time Status Last Admin Dose Admin Heparin Sodium/ Dextrose 500 ml @ 0 mls/hr Q0M ONCE IV 02/25/21 22:30 02/25/21 22:45 DC 02/25/21 23:02 20 MLS/HR Piperacillin Sod/ Tazobactam Sod 4.5 gm/Sodium Chloride 100 ml @ 200 mls/hr ONCE ONCE IV 02/25/21 19:30 02/25/21 19:59 DC 02/25/21 19:48 200 MLS/HR Sodium Chloride 1,000 ml @ 999 mls/hr Q1H ONCE IV 02/25/21 19:30 02/25/21 20:30 DC 02/25/21 19:48 999 MLS/HR (ARLEEN PATTON MD) Vital Signs/I&O 02/25/21 15:45 Temp 39.2 Pulse 138 Resp 22 B/P (MAP) 156/89 (111) Pulse Ox 94 O2 Delivery Room Air (ARLEEN PATTON MD) Blood Pressure Mean: 111 Progress Progress Note : Progress Note Patient examined, ill appearance. Initial concern is for sepsis due to current chemo/radiation treatment for his active metastatic cancer. Initially patient reported increased pain in his suprapubic region so urine is a likely source. However will obtain chest x-ray and proceed to imaging of abdomen and pelvis pending kidney function. Orders given to initiate normal saline 1 L fluid. Vital signs stable.Will give ibuprofen 600 mg p.o. for elevated temperature. States that he is not to have any additional Tylenol due to metastasis of cancer to his liver. Labs reviewed, elevated white count and elevated lactic. Sepsis unknown origin at this time. We will continue to give IV fluids at the 30ml/kg. Orders placed for CT abdomen pelvis with contrast. Chest x-ray unremarkable. CT abd/pelvis Show progressive worsening of his metastatic disease with mets to the liver, retroperitoneum, peritoneum and bones. Additionally has increased size and poor definition of his sigmoid colon mass representing a contained perforation and associated fistulization to the ileum. No marli intraperitoneal perforation or free air seen. Also has small amount of thrombus in the anterior division of the right portal vein. Discussed findings with patient, requested I call Dr. Burroughs his medical onco logist and update him with results. Would like his recommendation on further management. (1912) Called Dr. Burroughs and states patient should be transferred to [facility] for surgical intervention. (1916) Called [facility] for transfer. Declined due to no bed availability at this time. Discussed options with patient and he is agreeable with transfer to any accepting facility. (1932) Called [facility] in [place]. Declined due to full capacity. (1939) Called [facility] to inquire about possible transfer. Hospitalist accepted transfer. (2035) Dr. Roque surgeon called and stated there Was nothing he can offer patient from a surgical standpoint. He recommended hospice care at this time due to extent of disease process. States that if patient were ready to have hospice care they were happy to accept him however if he wanted to try surgical intervention he was be better served at [facility]. Dr. Bush general surgeon in ED consulting on another patient. Reviewed images with him. States patient would likely require colostomy and ileostomy, concerns voiced that benefits of surgical intervention may not outweigh risk in light of his worsening metastatic disease. Recommended discussing hospice or palliative care with patient. (2044) Updated family on transfer to [facility]. Thoroughly discussed disease process at this time and recommendations for hospice care. Patient states that he is not ready for hospice and would like to continue to try to fight. Request transfer to [facility]. States his medical oncologist Dr. Echeverria informed him that his repeat CT results with the current trial medications he is on would be worse before they look better. He would like his team to evaluate his progress. Called [facility] and inquired about possible transfer again, states that there are no beds available and would need to call again in the a.m. to see if any beds had opened up after discharges. Continued aggressive fluid resuscitation and IV antibiotics. Repeat lactic acid 2.03, trending in the right direction. He is feeling better. Repeat temperature 37.1. Will initiate heparin drip for PVT. Pain tolerated. No needs identified. Medical bed from the surgical floor brought to ER for boarding. (2299) Called [facility] center at this time to discuss possibly consulting with surgeon to see if surgical intervention would be appropriate at this stage in his treatment. transfer line states that patient has never been evaluated by surgical team at and would be unlikely to provide any feedback this evening. They recommend calling Dr. Echeverria his medical oncologist in the morning to review case and have him review images to see if surgical intervention is recommended at this course. (2330) Plan of care reviewed with Dr. Sanabria at this time. VSS. Orders placed for normal saline 100ml/hr per hour and Zosyn 4.5 g every 8 hours with the next dose at 0400. He is resting comfortably at this time. Care turned over to Dr. Sanabria. (ISAIAH SAMANIEGO CARDIOLOGY COORDINATOR) Progress Note #1: Time: 06:09 Progress Note Patient has been is stable through the night. Vital signs are presently stable and he is afebrile. He has not required any pain medication since transitioning care to [facility] at 2300. The transfer center called requesting an update. Labs and vital signs were reviewed. Their plan is to have Dr. Hernandez Silverman reviewed the case and imaging and provide further direction. Patient was given an update on the plan and expresses no needs at this time. [facility] Progress Note #2: Time: 06:47 Progress Note Received a call back from [facility]. After surgical review of the imaging, they have determined he is not a surgical candidate and therefore would not benefit from transfer to [facility]. I then discussed the case with Dr. Lundberg. He is recommending admission for further treatment of infection. I discussed the situation with the patient. He is agreeable to admission here for further treatment of infection. We discussed CODE STATUS and he wishes to be assigned a DO NOT RESUSCITATE status. We will continue his oral chemotherapy medication. (ARLEEN PATTON MD) Diagnostic Imaging Diagonstic Imaging: Xray Plain Films/CT/US/NM/MRI: chest Comments [facility]. [place], [place] NAME: RAYSADALTON Clayton [facility] REC#: [id number] PT STATUS: REG ER : 1965 PHYSICIAN: ISAIAH SAMANIEGO APRN ADMIT DATE: 02/25/21/ER Draft Date of Exam:02/25/21 CHEST 1 VIEW, AP/PA ONLY INDICATION: Sepsis. TECHNIQUE: Frontal chest obtained at 04:32 p.m. and compared to 09/06/2020. FINDINGS: Heart is mildly enlarged. There is some bibasilar atelectasis. There is no pneumothorax or pleural fluid. Port-A-Cath is unchanged with tip overlying the SVC. IMPRESSION: Cardiomegaly. There is bibasilar atelectatic change. There is no marli consolidation or pneumothorax or pleural fluid. Dictated on workstation # [id number] Dict: 02/25/21 1632 Trans: 02/25/21 1637 [id number] Interpreted by: VERO ARCEO MD Electronically signed by: Reviewed: Reviewed by Me Diagonstic Imaging: CT Plain Films/CT/US/NM/MRI: abdomen, pelvis Comments [facility] [place] [place] NAME: DALTON TABARES [facility] REC#: [id number] PT STATUS: REG ER : 1965 PHYSICIAN: ISAIAH SAMANIEGO CARDIOLOGY COORDINATOR ADMIT DATE: 02/25/21/ER Signed Date of Exam:02/25/21 CT ABDOMEN/PELVIS W EXAMINATION: CT abdomen and pelvis with intravenous contrast. TECHNIQUE: Multiple contiguous axial images were obtained through the abdomen and pelvis after the uneventful administration of intravenous contrast. All CT scans use one or more of the following dose optimizing techniques: automated exposure control, MA and/or KvP adjustment based on patient size and exam type or iterative reconstruction. HISTORY: Abdominal pain and fever COMPARISON: 01/04/2021 FINDINGS: Limited views of the lower thorax show small right pleural effusion and overlying atelectasis. There is extensive metastatic disease within the liver. The largest lesion in the right hemiliver measures 8.6 x 8.6 cm, previously 6.1 x 6.5 cm. A large lesion in the left hemiliver measures 9.4 x 7.8 cm, previously 8.8 x 5.2 cm. There is an increase in the size and number of the liver masses. Gallbladder is decompressed. There is a small amount of thrombus in a branch of the anterior division of the right portal vein. The pancreas is normal. Spleen is normal. Adrenal glands are normal. Kidneys are normal without focal lesion. No hydronephrosis. There is a right-sided nephroureteral stent. Urinary bladder is normal. There is a mass in the sigmoid colon which is increased in size from prior exam and likely is associated with contained perforation as there is no clear continuity of the melendrez around the mass. There is no marli intraperitoneal perforation. 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 There is no bowel obstruction. Metastatic implants in the right lower quadrant have increased in size, now has a conglomerate measuring 4.4 x 5.7 cm, previously 5.0 x 3.9 cm. There is a small amount of ascites. There has been a gastric resection. Retroperitoneal lymphadenopathy is progressed with a retroperitoneal node measuring 2.1 cm, previously 1.8 cm. Meet hepatis lymphadenopathy has also increased. There is a mass in the right inguinal canal which appears similar to prior exam. There is an indeterminate sclerotic lesion in T11. It is new from prior exam. IMPRESSION: 1. Progression of metastatic disease in the liver, retroperitoneum, peritoneum and bones. 2. The sigmoid colon mass is again seen and is increased in size with poor definition of the melendrez likely representing contained perforation and associated fistulization to the ileum. No marli intraperitoneal perforation or free air. 3. Small amount of thrombus in the anterior division of the right portal vein. Dictated by: Dictated on workstation # [id number] Dict: 02/25/21 1735 Trans: 02/25/212002 BOB [id number] Interpreted by: JOSTIN SHELDON MD Electronically signed by: JOSTIN SHELDON MD 02/25/212002 Reviewed: Reviewed by Me (ISAIAH SAMANIEGO APRN) Transfer of Care Time: 23:30 Care transferred to: Dr. Patton (ISAIAH SAMANIEGO APRN) Departure Communication (Admissions) Time/Spoke to Admitting Phy: 06:00 Dr. Morgan Time/Spoke to Consulting Phy: 05:30 Dr. 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 Referrals: KENAN COTTON DO (PCP/Family) Primary Care Physician Copy Copies To 1: KENAN COTTON STORMY D APRN Feb 25, 2021 16:23 ARLEEN PATTON MD Feb 26, 2021 06:11
--- NOTE | 2021-02-25 16:37 | Diagnostic Imaging Report ---
INDICATION: Sepsis. TECHNIQUE: Frontal chest obtained at 04:32 p.m. and compared to 09/06/2020. FINDINGS: Heart is mildly enlarged. There is some bibasilar atelectasis. There is no pneumothorax or pleural fluid. Port-A-Cath is unchanged with tip overlying the SVC. IMPRESSION: Cardiomegaly. There is bibasilar atelectatic change. There is no marli consolidation or pneumothorax or pleural fluid. Dictated by: Dictated on workstation # [id number]
[2021-02-25 16:39] LABS: ALBUMIN 3.2 GM/DL (3.2-4.5); POTASSIUM 3.9 MMOL/L (3.6-5.0)
[2021-02-25 16:40] LABS: CALCIUM 8.4 MG/DL (8.5-10.1)
[2021-02-25 16:41] LABS: TOTAL PROTEIN 6.7 GM/DL (6.4-8.2)
[2021-02-25 16:43] LABS: BILIRUBIN,TOTAL 0.9 MG/DL (0.1-1.0)
[2021-02-25 16:44] LABS: INR 1.4 (0.8-1.4); PROTHROMBIN TIME PATIENT 17.4 SEC (12.2-14.7)
[2021-02-25 16:45] LABS: CREATININE SERUM 1.06 MG/DL (0.60-1.30)
[2021-02-25 16:53] LABS: ANISOCYTOSIS SLIGHT; LYMPHOCYTES % (MANUAL) 6 %; MONOCYTES % (MANUAL) 10 %; NEUTROPHILS % (MANUAL) 84 %
[2021-02-25] MEDS ORDERED: NS IV 1000 ML 1,000 ML IV ONE ×2 (17:00→19:30)
[2021-02-25] MEDS ORDERED: HOLD METFORMIN - RECEIVED CONTRAST 20 ML VIAL IV SCH (17:15)
[2021-02-25] MEDS ORDERED: IOHEXOL 350 MG/ML 100 ML (OMNIPAQUE 350) VIAL IV ONE (17:15)
[2021-02-25] MEDS ORDERED: NS 100 ML (IVPB) BAG IV ONE (17:15)
--- NOTE | 2021-02-25 17:45 | Diagnostic Imaging Report ---
EXAMINATION: CT abdomen and pelvis with intravenous contrast. TECHNIQUE: Multiple contiguous axial images were obtained through the abdomen and pelvis after the uneventful administration of intravenous contrast. All CT scans use one or more of the following dose optimizing techniques: automated exposure control, MA and/or KvP adjustment based on patient size and exam type or iterative reconstruction. HISTORY: Abdominal pain and fever COMPARISON: 01/04/2021 FINDINGS: Limited views of the lower thorax show small right pleural effusion and overlying atelectasis. There is extensive metastatic disease within the liver. The largest lesion in the right hemiliver measures 8.6 x 8.6 cm, previously 6.1 x 6.5 cm. A large lesion in the left hemiliver measures 9.4 x 7.8 cm, previously 8.8 x 5.2 cm. There is an increase in the size and number of the liver masses. Gallbladder is decompressed. There is a small amount of thrombus in a branch of the anterior division of the right portal vein. The pancreas is normal. Spleen is normal. Adrenal glands are normal. Kidneys are normal without focal lesion. No hydronephrosis. There is a right-sided nephroureteral stent. Urinary bladder is normal. There is a mass in the sigmoid colon which is increased in size from prior exam and likely is associated with contained perforation as there is no clear continuity of the melendrez around the mass. There is no marli intraperitoneal perforation. 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 There is no bowel obstruction. Metastatic implants in the right lower quadrant have increased in size, now has a conglomerate measuring 4.4 x 5.7 cm, previously 5.0 x 3.9 cm. There is a small amount of ascites. There has been a gastric resection. Retroperitoneal lymphadenopathy is progressed with a retroperitoneal node measuring 2.1 cm, previously 1.8 cm. Meet hepatis lymphadenopathy has also increased. There is a mass in the right inguinal canal which appears similar to prior exam. There is an indeterminate sclerotic lesion in T11. It is new from prior exam. IMPRESSION: 1. Progression of metastatic disease in the liver, retroperitoneum, peritoneum and bones. 2. The sigmoid colon mass is again seen and is increased in size with poor definition of the melendrez likely representing contained perforation and associated fistulization to the ileum. No marli intraperitoneal perforation or free air. 3. Small amount of thrombus in the anterior division of the right portal vein. Dictated by: Dictated on workstation # [id number]
[2021-02-25 18:39] LABS: BILIRUBIN,URINE NEGATIVE (NEGATIVE); CLARITY,URINE CLEAR; COLOR,URINE YELLOW; GLUCOSE, URINE (UA) NEGATIVE (NEGATIVE); KETONES,URINE NEGATIVE (NEGATIVE); LEUKOCYTE ESTERASE ,URINE NEGATIVE (NEGATIVE); NITRITE,URINE NEGATIVE (NEGATIVE); PROTEIN,URINE 1+ (NEGATIVE)
[2021-02-25 18:54] LABS: BACTERIA,URINE NEGATIVE /HPF; RBC,URINE RARE /HPF
[2021-02-25] MEDS ORDERED: PIPERACILLIN SODIUM/TAZOBACTAM 4.5 GM in NS (IVPB) 100 ML IV ONE (19:30)
[2021-02-25] MEDS ORDERED: HEParin 1000 UNIT/ML (10ML VIAL) FOR BOLUS IV SCH (20:00)
[2021-02-25] MEDS ORDERED: HYDROmorphone 2 MG/ML VIAL (DILAUDID) IV ONE (20:30)
[2021-02-25] MEDS ORDERED: HEParin DRIP 25000 UNIT/500ML 500 ML IV ONE (22:30)
[2021-02-26] MEDS ORDERED: PIPERACILLIN/TAZOBACTAM (BULK) 4.5 GM in NS (IVPB) 100 ML IV SCH (04:00)
[2021-02-26] MEDS ORDERED: PIPERACILLIN/TAZO 4.5 GM VIAL (ZOSYN) IV ONE (04:29)
[2021-02-26] MEDS ORDERED: NS (IVPB) 100 ML ONE (04:31)
[2021-02-26 04:41] LABS: BASOPHILS % (AUTO) 0 % (0-10); EOSINOPHILS % (AUTO) 0 % (0-10); HEMATOCRIT 31 % (40-54); HEMOGLOBIN 9.8 g/dL (13.3-17.7); LYMPHOCYTES # (AUTO) 0.7 10^3/uL (1.0-4.0); LYMPHOCYTES % (AUTO) 5 % (12-44); MEAN CORPUSCULAR HEMOGLOBIN 26 pg (25-34); MEAN CORPUSCULAR HGB CONC 32 g/dL (32-36); MEAN CORPUSCULAR VOLUME 83 fL (80-99); MEAN PLATELET VOLUME 9.8 fL (9.0-12.2); MONOCYTES # (AUTO) 1.6 10^3/uL (0.0-1.0); MONOCYTES % (AUTO) 11 % (0-12); NEUTROPHILS # (AUTO) 12.2 10^3/uL (1.8-7.8); NEUTROPHILS % (AUTO) 84 % (42-75); PLATELET COUNT 187 10^3/uL (130-400); WHITE BLOOD COUNT 14.6 10^3/uL (4.3-11.0)
[2021-02-26 04:55] LABS: POTASSIUM 3.4 MMOL/L (3.6-5.0)
[2021-02-26 04:56] LABS: CALCIUM 8.2 MG/DL (8.5-10.1)
[2021-02-26 05:01] LABS: CREATININE SERUM 0.77 MG/DL (0.60-1.30)
[2021-02-26 08:00] VITALS: BP 136/87
[2021-02-26] MEDS ORDERED: ONDANSETRON 4 MG/2 ML (SDV) Z0FRAN IV PRN (09:15)
[2021-02-26] MEDS ORDERED: HEParin DRIP 25000 UNIT/500ML (ACS THERAPY) IV SCH (09:15)
[2021-02-26] MEDS ORDERED: HEParin 1000 UNIT/ML BOLUS (ACS THERAPY) IV PRN (09:15)
[2021-02-26] MEDS: morphine INJ 10 MG/ML 1ML (SYR OR VIAL) IV PRN ×2 (09:50→13:56)
[2021-02-26] MEDS: NS IV 1000 ML 1,000 ML IV SCH ×2 (09:51→18:13)
[2021-02-26] MEDS: morphine ER 15 MG (MS CONTIN) TAB PO SCH ×2 (09:51→20:31)
[2021-02-26 11:23] VITALS: BP 136/87
[2021-02-26 12:00] VITALS: BP 164/93
--- NOTE | 2021-02-26 12:35 | History & Physical-Hospitalist ---
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 He states that it started either the or the . He then developed a fever and was very weak. He was hardly able to get out of bed prompting his to bring him to the emergency department yesterday. On arrival to the ER he was found to be febrile with a temperature of 39 was quite tachycardic with a heart rate of 138. Imaging of his abdomen revealed a contained sigmoid perforation where he has his known sigmoid mass. It also revealed worsening of his metastatic disease. He has been on chemo since August 2020 when he was diagnosed and recently began a clinical trial. Due to be perforation and disease burden transfer was attempted to where he follows with oncology but surgery reviewed the images and declined to accept him and states that he was not a surgical candidate. Family was unwilling to go any where for intervention and transfer was attempted at [facility] in [place]. [facility] was on diversion and [facility] reviewed his films and agreed that he is not a surgical candidate. He was admitted here for conservative management. He states he is feeling much better his pain is improved. He is no longer febrile. He is understanding of the precarious situation he is in should his abdominal exam worsen or we are not able to treat his infection. Date Seen 02/26/21 Time Seen by a Provider: 12:35 Attending Physician Nimisha Guzman MD PCP Shayan Calzada DO Referring Physician Date of Admission Feb 26, 2021 at 06:52 Home Medications & Allergies Home Medications Reviewed patient Home Medication Reconciliation performed by pharmacy medication reconciliations biomedical repair technician and/or nursing. Patients Allergies have been reviewed. Allergies Allergies Coded Allergies eucalyptus (Verified Allergy, Unknown, 09/06/20) Past Wiydryk-Bejztv-Mfzbud Hx Patient Social History Marrital Status: Tobacco Use?: No Smoking Status: Former Smoker Use of E-Cig and/or Vaping dev: No Substance use?: No Alcohol Use?: No Pt feels they are or have been: No Immunizations Up To Date Date of Influenza Vaccine: Apr 06, 2020 First/Initial COVID19 Vaccinat: AUGUST 2020 Second COVID19 Vaccination Erwin: AUGUST 2020 Tetanus Booster (TDap): Less Than 5 Years Hepatitis A: Yes Seasonal Allergies Seasonal Allergies: Yes Current Status Advance Directives: Yes Communicates: Verbally Primary Language: Belarusian Preferred Spoken Language: Belarusian Is interpretation needed?: No Sensory deficits: Vision impairment Implanted or Applied Medical D: Port-a-cath Past Medical History Surgeries: Abdominal, Orthopedic Currently Using CPAP: No Currently Using BIPAP: No High Cholesterol Rectal, Colon What Type of Treatment Did You: Chemotherapy Psoriasis Blood Disorders: Yes (ANEMIA) Family Medical History Reviewed Nursing Family Hx No Pertinent Family Hx Review of Systems Constitutional: chills, fever, malaise, weakness EENTM: no symptoms reported Respiratory: No cough, No short of breath Cardiovascular: No chest pain, No edema, No palpitations Gastrointestinal: abdominal pain, nausea Genitourinary: no symptoms reported Musculoskeletal: no symptoms reported Skin: no symptoms reported Psychiatric/Neurological: No Symptoms Reported Physical Exam Physical Exam Vital Signs Vital Signs - First Documented 02/25/21 15:45 Temp 39.2 Pulse 138 Resp 22 B/P (MAP) 156/89 (111) Pulse Ox 94 O2 Delivery Room Air Capillary Refill : Less Than 3 Seconds Height, Weight, BMI Height: 6'0.00" Weight: 275lbs. 0.0oz. 124.712489pn; 28.28 BMI Method: General Appearance: No Apparent Distress, WD/WN HEENT: PERRL/EOMI, Moist Mucous Membranes; No Scleral Icterus (L), No Scleral Icterus (R) Respiratory: Lungs Clear, No Respiratory Distress Cardiovascular: Regular Rate, Rhythm, No Murmur Gastrointestinal: Normal Bowel Sounds, Non Tender, Soft Results Results/Procedures Labs Laboratory Tests 02/25/21 16:12 02/26/21 04:36 02/27/21 11:10 Patient resulted labs reviewed. 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 Attempted transfer to tertiary facilities and all said he is not a surgical candidate Will attempt to manage medically Zosyn Cultures pending Surgery and Oncology consulted, appreciate recs Lactic improved will DC further checks as BP improved and likely slow to clear due to liver mets Check in AM Discussed gravity of illness and that if infection worsens he has very limited options and he expresses understanding Defer home chemo meds to Dr Lundberg Continue home pain meds with IV Morphien for breakthrough Portal Vein Thrombosis Currently on heparin gtt Dr Lundberg consulted [facility]LD Hold home statin DVT ppx: heparin gtt Diagnosis/Problems Diagnosis/Problems (1) 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
[2021-02-26] MEDS ORDERED: DOCU100C37 PO (12:52)
[2021-02-26] MEDS ORDERED: MORP-68 PO (12:52)
[2021-02-26] MEDS ORDERED: MULT-1136 PO (12:52)
[2021-02-26] MEDS ORDERED: TRAM2TAB PO (12:52)
[2021-02-26] MEDS ORDERED: ONDA8TAB15 PO (12:52)
[2021-02-26] MEDS ORDERED: CHOL100048 PO (12:52)
[2021-02-26] MEDS ORDERED: DABR75CA PO (12:52)
[2021-02-26] MEDS ORDERED: OXYC10TA7 PO (12:52)
--- NOTE | 2021-02-26 13:09 | Consultation - Surgery ---
DEBORA SYKES 02/26/21 1309: History of Present Illness History of Present Illness Patient Consulted On(dodie/time) 02/26/21 13:05 Date Seen by Provider: Feb 26, 2021 Time Seen by Provider: 13:15 History of Present Illness Consulted by Dr. 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 Pt diagnosed with colon and liver carcinoma in August 2020 after having chronic RUQ abdominal pain. On MATCH trail. Current abdominal pain better with morphine, denies anything makes it worse. NPO last night, currently clear liquid diet. Reports fever yesterday. Chronic weakness due. Denies chills, nausea, vomiting, diarrhea, any blood in stools, or bowel/urinary complaints. Allergies and Home Medications Allergies Coded Allergies: eucalyptus (Verified Allergy, Unknown, 09/06/20) Patient Home Medication List Cholecalciferol (Vitamin D3) (Vitamin D3) 25 Mcg Capsule, 25 MCG PO DAILY, (Reported) Entered as Reported by: MANUEL HOWELL on 02/26/211251 Last Action: Reviewed Dabrafenib Mesylate (Tafinlar) 75 Mg Capsule, 150 MG PO , (Reported) Entered as Reported by: MANUEL HOWELL on 02/26/211251 Last Action: Reviewed Docusate Sodium (Docusate Sodium) 100 Mg Capsule, 100 MG PO BID PRN for CONSTIPATION-1ST LINE, (Reported) Entered as Reported by: MANUEL HOWELL on 02/26/21 125 Last Action: Reviewed Lovastatin (Lovastatin) 40 Mg Tablet, 40 MG PO HS, (Reported) Entered as Reported by: ARGELIA PATTON on 01/08/21 1158 Last Action: Reviewed Morphine Sulfate (Morphine Sulfate ER) 15 Mg Tablet.er, 15 MG PO Q12H, (Reported) Entered as Reported by: MANUEL HOWELL on 02/26/21 125 Last Action: Reviewed Multivitamin (Multivitamin) 1 Each Tablet, 1 EACH PO DAILY, (Reported) Entered as Reported by: MANUEL HOWELL on 02/26/21 125 Last Action: Reviewed Ondansetron HCl (Ondansetron HCl) 8 Mg Tablet, 8 MG PO Q8H PRN for NAUSEA/VOMI TING-1ST LINE, (Reported) Entered as Reported by: MANUEL HOWELL on 02/26/211251 Last Action: Reviewed Oxycodone HCl (Oxycodone HCl) 10 Mg Tablet, 10 MG PO Q4H PRN for PAIN-SEVERE (8- 10), (Reported) Entered as Reported by: MANUEL HOWELL on 02/26/211251 Last Action: Reviewed Polyethylene Glycol 3350 (Miralax) 17 Gm Powd.pack, 17 GM PO HS, (Reported) Entered as Reported by: ARGELIA PATTON on 01/08/211157 Last Action: Reviewed Trametinib Dimethyl Sulfoxide (Mekinist) 2 Mg Tablet, 2 MG PO 1999, (Reported) Entered as Reported by: MANUEL HOWELL on 02/26/211251 Last Action: Reviewed Vitamin B Complex (Vitamin B Complex) 1 Each Capsule, 1 EACH PO DAILY, (Reported) Entered as Reported by: ARGELIA PATTON on 10/29/20835 Last Action: Reviewed Discontinued Medications Hydrocodone/Acetaminophen (Hydrocodone-Acetamin 10-325 mg) 1 Each Tablet, 1 EACH PO Q4H PRN for PAIN-MODERATE (5-7), (Reported) Discontinued Reason: No Longer Taking Entered as Reported by: ARGELIA PATTON on 01/08/211157 Last Action: Discontinued Multivit-Min/FA/Lycopen/Lutein (Men 50 Plus Multivitamin Tab) 1 Each Tablet, 1 EACH PO DAILY, (Reported) Discontinued Reason: Duplicate Order Entered as Reported by: VITO CORBIN on 09/04/20 1106 Last Action: Discontinued Vitamin D (Vitamin D3) Unknown Strength Tablet, Unknown Dose PO DAILY, (Reported) Discontinued Reason: Prescription changed Entered as Reported by: ARGELIA PATTON on 10/29/20835 Past Hphyvyq-Kynyby-Huvypd Hx Patient Social History Smoking Status: Former Smoker Former Smoker, Quit: Sep 02, 2020 Type Used: Cigarettes, Smokeless Tobacco 2nd Hand Smoke Exposure: No Recent Hopitalizations: No Alcohol Use?: No Have you traveled recently?: No Immunizations Up To Date Date of Influenza Vaccine: Apr 06, 2020 Seasonal Allergies Seasonal Allergies: Yes Surgeries History of Surgeries: Yes (L ING HERNIA, orif arm, SKIN RAFT R FOOT, TENDON REPAIR THUMB, gastric slee) Surgeries: Abdominal, Orthopedic Respiratory History of Respiratory Disorde: No Cardiovascular History of Cardiac Disorders: Yes Cardiac Disorders: High Cholesterol Neurological History of Neurological Disord: No Genitourinary History of Genitourinary Disor: No Gastrointestinal History of Gastrointestinal Di: No Musculoskeletal History of Musculoskeletal Dis: No Endocrine History of Endocrine Disorders: No HEENT History of HEENT Disorders: Yes (WEARS GLASSES) Cancer History of Cancer: Yes (CURRENT COLON CANCER) Cancer: Rectal, Colon Psychosocial History of Psychiatric Problem: No Integumentary History of Skin or Integumenta: Yes (PSORIASIS OF THE FEET) Skin/Integumentary Disorders: Psoriasis Blood Transfusions History of Blood Disorders: Yes (ANEMIA) Review of Systems-General Constitutional: No chills; weakness EENTM: No blurred vision, No vision loss, No throat pain Respiratory: No cough, No short of breath, No wheezing Cardiovascular: No chest pain, No edema, No palpitations Gastrointestinal: abdominal pain; No diarrhea, No nausea, No vomiting Genitourinary: No dysuria, No frequency, No incontinence Musculoskeletal: No back pain, No muscle pain, No neck pain Skin: No change in color, No lesions, No pruritus, No rash Psychiatric/Neurological: Denies Headache, Denies Numbness, Denies Tingling Physical Exam-General Problems Physical Exam Vital Signs Vital Signs - First Documented 02/25/21 15:45 Temp 39.2 Pulse 138 Resp 22 B/P (MAP) 156/89 (111) Pulse Ox 94 O2 Delivery Room Air Capillary Refill : Less Than 3 Seconds General Appearance: WD/WN, no apparent distress HEENT: PERRL/EOMI Neck: non-tender, supple, normal inspection Respiratory: chest non-tender, no respiratory distress, no accessory muscle use Cardiovascular: regular rate, rhythm Gastrointestinal: No soft; distended, tenderness Back: normal inspection Extremities: non-tender, normal inspection, no pedal edema, no calf tenderness, normal capillary refill Neurologic/Psychiatric: alert, oriented x 3 Skin: warm/dry Data Review Labs Laboratory Tests 02/25/21 16:12: White Blood Count 18.6H, Red Blood Count 4.13L, Hemoglobin 11.0L, Hematocrit 35L , Mean Corpuscular Volume 85, Mean Corpuscular Hemoglobin 27, Mean Corpuscular Hemoglobin Concent 31L, Red Cell Distribution Width 19.1H, Platelet Count 280, Mean Platelet Volume 9.1, Immature Granulocyte % (Auto) 0, Neutrophils (%) (Auto) 87H, Lymphocytes (%) (Auto) 4L, Monocytes (%) (Auto) 9, Eosinophils (%) (Auto) 0, Basophils (%) (Auto) 0, Neutrophils # (Auto) 16.1H, Lymphocytes # (Auto) 0.8L, Monocytes # (Auto) 1.6H, Eosinophils # (Auto) 0.0, Basophils # (Auto) 0.0, Immature Granulocyte # (Auto) 0.1, Neutrophils % (Manual) 84, Lymphocytes % (Manual) 6, Monocytes % (Manual) 10, Anisocytosis SLIGHT, Prothrombin Time 17.4H, INR Comment 1.4, Activated Partial Thromboplast Time 43H , Sodium Level 125*L, Potassium Level 3.9, Chloride Level 91L, Carbon Dioxide Level 20L, Anion Gap 14, Blood Urea Nitrogen 14, Creatinine 1.06, Estimat Glomerular Filtration Rate 72, BUN/Creatinine Ratio 13, Glucose Level 212H, Lactic Acid Level 3.77*H, Calcium Level 8.4L, Corrected Calcium 9.0, Total Bilirubin 0.9, Aspartate Amino Transf (AST/SGOT) 199H, Alanine Aminotransferase (ALT/SGPT) 56H, Alkaline Phosphatase 377H, Lactate Dehydrogenase 9007H, Total Protein 6.7, Albumin 3.2, Procalcitonin 19.89H 02/25/21 18:05: Lactic Acid Level 3.36*H 02/25/21 18:10: Urine Color YELLOW, Urine Clarity CLEAR, Urine pH 6.0, Urine Specific [facility] 1.015L, Urine Protein 1+H, Urine Glucose (UA) NEGATIVE, Urine Ketones NEGATIVE, Urine Nitrite NEGATIVE, Urine Bilirubin NEGATIVE, Urine Urobilinogen 1.0, Urine Leukocyte Esterase NEGATIVE, Urine RBC (Auto) TRACE-I, Urine RBC RARE, Urine WBC NONE, Urine Squamous Epithelial Cells NONE, Urine Crystals NONE, Urine Bacteria NEGATIVE, Urine Casts PRESENT, Urine Hyaline Casts 2-5H, Urine Mucus NEGATIVE, Urine Culture Indicated NO 02/25/21 22:20: Lactic Acid Level 2.30*H 02/26/21 00:32: Lactic Acid Level 2.26*H 02/26/21 04:36: Lactic Acid Level 2.20*H, White Blood Count 14.6H, Red Blood Count 3.71L, Hemoglobin 9.8L, Hematocrit 31L, Mean Corpuscular Volume 83, Mean Corpuscular Hemoglobin 26, Mean Corpuscular Hemoglobin Concent 32, Red Cell Distribution Width 18.7H, Platelet Count 187, Mean Platelet Volume 9.8, Immature Granulocyte % (Auto) 1, Neutrophils (%) (Auto) 84H, Lymphocytes (%) (Auto) 5L, Monocytes (%) (Auto) 11, Eosinophils (%) (Auto) 0, Basophils (%) (Auto) 0, Neutrophils # (Auto) 12.2H, Lymphocytes # (Auto) 0.7L, Monocytes # (Auto) 1.6H, Eosinophils # (Auto) 0.0, Basophils # (Auto) 0.0, Immature Granulocyte # (Auto) 0.1, Activated Partial Thromboplast Time 71H, Sodium Level 128L, Potassium Level 3.4L, Chloride Level 98, Carbon Dioxide Level 17L, Anion Gap 13, Blood Urea Nitrogen 15, Creatinine 0.77, Estimat Glomerular Filtration Rate 105, BUN/Creatinine Ratio 19, Glucose Level 126H, Calcium Level 8.2L, C-Reactive Protein High Sensitivity 26.57H, Procalcitonin 40.44H 02/26/21 07:15: Lactic Acid Level 2.19*H 02/26/21 10:20: Lactic Acid Level 2.51*H, Activated Partial Thromboplast Time 56H Assessment/Plan Assessment/Plan Assessment/Plan Neuroendocrine carcinoma of colon with metastasis to liver 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 Patient is a 56-year-old male who presented to the hospital with increasing abdominal pain fever and tachycardia. Patient states he has not felt well for about a week or so but the last 2 or 3 days is continued to worsen. Patient states that in August 2019 when he was diagnosed with neuroendocrine carcinoma. This was found to be metastatic. He has been on a trial through however despite treatment his disease process has continued to progress. Patient with abdominal pain that is diffuse. It seems that his abdomen has continued to increase in size he states. Patient pain is better with pain medication he states which currently gets little bit better under control right now. Without the pain medication and moving around it does worsen. Patient has a known sigmoid mass which appears to be more ill-defined on CT scan at this visit where it appears to have a contained perforation with fistulization to the ileum. There is no free air. Patient with worsening progression of overall metastatic disease. Patient with also thrombus in the portal vein. Allergies and Home Medications Allergies Coded Allergies: eucalyptus (Verified Allergy, Unknown, 09/06/20) Patient Home Medication List Home Medication List Reviewed: Yes Cholecalciferol (Vitamin D3) (Vitamin D3) 25 Mcg Capsule, 25 MCG PO DAILY, (Reported) Entered as Reported by: MANUEL HOWELL on 02/26/211251 Last Action: Reviewed Dabrafenib Mesylate (Tafinlar) 75 Mg Capsule, 150 MG PO , (Reported) Entered as Reported by: MANUEL HOWELL on 02/26/211251 Last Action: Reviewed Docusate Sodium (Docusate Sodium) 100 Mg Capsule, 100 MG PO BID PRN for CONSTIPATION-1ST LINE, (Reported) Entered as Reported by: MANUEL HOWELL on 02/26/211251 Last Action: Reviewed Lovastatin (Lovastatin) 40 Mg Tablet, 40 MG PO HS, (Reported) Entered as Reported by: ARGELIA PATTON on 01/08/21 1158 Last Action: Reviewed Morphine Sulfate (Morphine Sulfate ER) 15 Mg Tablet.er, 15 MG PO Q12H, (Reported) Entered as Reported by: MANUEL HOWELL on 02/26/211251 Last Action: Reviewed Multivitamin (Multivitamin) 1 Each Tablet, 1 EACH PO DAILY, (Reported) Entered as Reported by: MANUEL HOWELL on 02/26/211251 Last Action: Reviewed Ondansetron HCl (Ondansetron HCl) 8 Mg Tablet, 8 MG PO Q8H PRN for NAUSEA/VOMITING-1ST LINE, (Reported) Entered as Reported by: MANUEL HOWELL on 02/26/211251 Last Action: Reviewed Oxycodone HCl (Oxycodone HCl) 10 Mg Tablet, 10 MG PO Q4H PRN for PAIN-SEVERE (8- 10), (Reported) Entered as Reported by: MANUEL HOWELL on 02/26/21 125 Last Action: Reviewed Polyethylene Glycol 3350 (Miralax) 17 Gm Powd.pack, 17 GM PO HS, (Reported) Entered as Reported by: ARGELIA PATTON on 01/08/21 1158 Last Action: Reviewed Trametinib Dimethyl Sulfoxide (Mekinist) 2 Mg Tablet, 2 MG PO 2000, (Reported) Entered as Reported by: MANUEL HOWELL on 02/26/211251 Last Action: Reviewed Vitamin B Complex (Vitamin B Complex) 1 Each Capsule, 1 EACH PO DAILY, (Reported) Entered as Reported by: ARGELIA PATTON on 10/29/20 0836 Last Action: Reviewed Discontinued Medications Hydrocodone/Acetaminophen (Hydrocodone-Acetamin 10-325 mg) 1 Each Tablet, 1 EACH PO Q4H PRN for PAIN-MODERATE (5-7), (Reported) Discontinued Reason: No Longer Taking Entered as Reported by: ARGELIA PATTON on 01/08/211157 Last Action: Discontinued Multivit-Min/FA/Lycopen/Lutein (Men 50 Plus Multivitamin Tab) 1 Each Tablet, 1 EACH PO DAILY, (Reported) Discontinued Reason: Duplicate Order Entered as Reported by: VITO CORBIN on 09/04/20 1106 Last Action: Discontinued Vitamin D (Vitamin D3) Unknown Strength Tablet, Unknown Dose PO DAILY, (Reported) Discontinued Reason: Prescription changed Entered as Reported by: ARGELIA PATTON on 10/29/20835 Past Bvlpbaq-Otbvjm-Eebhrw Hx Reviewed Nursing Assessment Reviewed/Agree w Nursing PMH: Yes Family Medical History Significant Family History: No Pertinent Family Hx Review of Systems-General Constitutional: No chills; weakness EENTM: No blurred vision, No vision loss, No nose pain, No throat pain Respiratory: No cough, No short of breath, No wheezing Cardiovascular: No chest pain, No edema, No palpitations Gastrointestinal: abdominal pain; No diarrhea, No nausea, No vomiting Genitourinary: No dysuria, No frequency Musculoskeletal: No back pain, No muscle pain Skin: No change in color, No lesions Psychiatric/Neurological: Denies Headache, Denies Numbness All Other Systems Reviewed Negative Unless Noted: Yes (Negative excepted noted.) Physical Exam-General Problems Physical Exam General Appearance: WD/WN, no apparent distress (Laying in bed) HEENT: PERRL/EOMI, normal ENT inspection Neck: non-tender, supple, normal inspection Respiratory: chest non-tender, no respiratory distress, no accessory muscle use Cardiovascular: regular rate, rhythm, no JVD Gastrointestinal: distended, tenderness (Diffuse, more in the lower abdomen) Rectal: deferred Back: normal inspection Extremities: non-tender, normal inspection, no pedal edema, no calf tenderness, normal capillary refill Neurologic/Psychiatric: alert, oriented x 3 Skin: normal color, warm/dry Lymphatic: no adenopathy Assessment/Plan Assessment/Plan Assessment/Plan Neuroendocrine carcinoma of colon with metastasis to liver, retroperitoneum, peritoneum and bone Sepsis Portal vein thrombosis 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 Patient with likely contained perforation causing his sepsis. Do not feel there is any surgical intervention that can be performed. Patient is passing flatus and having bowel function so he is not obstructed so by diverting this would not gain anything. Would recommend conservative management at this time. Would also consider palliative care. Supervisory-Addendum Brief Verification & Attestation Participated in pt care: history, MDM, physical Personally performed: exam, history, MDM, supervision of care Care discussed with: Medical Student Procedures: n/a Results interpretation: Verified all documentation Verification and Attestation of Medical Student E/M Service A medical student performed and documented this service in my presence. I reviewed and verified all information documented by the medical student and made modifications to such information, when appropriate. I personally performed the physical exam and medical decision making. Michael Zamorano, Feb 26, 2021,20:51 DEBORA SYKES Feb 26, 2021 13:09 MICHAEL ZAMORANO DO Feb 26, 2021 20:41
[2021-02-26] MEDS: PIPERACILLIN/TAZO 4.5 GM/NS 100 ML IV SCH ×4 (13:56→20:31)
[2021-02-26 15:30] VITALS: BP 161/80
[2021-02-26 20:00] VITALS: BP 161/91
[2021-02-27 00:09] VITALS: BP 151/90
--- NOTE | 2021-02-27 01:26 | CONSULTATION REPORT ---
DATE OF SERVICE: 02/26/2021 The patient is admitted to room 417. PHYSICIAN REQUESTING CONSULTATION: Nimisha Morgan MD IMPRESSION: 1. 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 2. Status post chemotherapy with carboplatin and etoposide regimen x4 cycles with concurrent radiation therapy to the pelvic mass with improvement in the pelvis, but progression in the liver and central retroperitoneal lymph nodes. 3. The patient was started on MATCH clinical trial as the tumor cells had BRAF mutation. He is being treated with Tafinlar 150 mg twice daily and Mekinist 2 mg once daily since last six weeks. Clinically, he had significant response initially. 4. The patient presented to the emergency room with febrile illness with a temperature of more than 102 degrees Fahrenheit with sepsis-like picture. 5. CT scans of the abdomen and pelvis done at the emergency room showed progression of metastatic disease in the liver, retroperitoneum and bone. The sigmoid colon mass has increased in size with poor definition of the melendrez, likely representing a contained perforation with associated fistula to the ileum. No marli intraperitoneal perforation or free air noted. Also, a small amount of thrombus in the anterior division of right portal vein noted. RECOMMENDATIONS: 1. Continue broad-spectrum antibiotic therapy because of possible sepsis. 2. This case was discussed with tertiary centers at [facility] as well as [facility] in [place] for surgical evaluation and resection. The patient had extensive disease and was not deemed a surgical candidate by these tertiary centers. Because of this, he was admitted to [facility] for antibiotic therapy and palliative care. 3. Because of evidence of progression by CT scan, I will discontinue the clinical trial and treatment with Tafinlar and Mekinist. We will have his family return the medication bottles when they can. 4. He has no good treatment options at this point and depending on how he tolerates antibiotic therapy and if he is able to be discharged home, we will discuss about best supportive care versus another opinion at a tertiary center. 5. Maintain him as DNR as his prognosis is poor. 6. We will follow the patient with you. 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 He had significant pain and obstruction at the time of diagnosis and was treated with carboplatin and etoposide regimen for 4 cycles with concurrent radiation therapy. This improved his symptoms in the pelvis, but the disease had progression in the liver and central retroperitoneal lymph nodes. He underwent a second opinion at [facility] and was recommended to participate in the MATCH clinical trial. He was noted to have BRAF mutation in the tumor cells and was enrolled in a clinical trial and treated with Tafinlar and Mekinist since the last six weeks with clinical response. He presented with fairly sudden onset febrile illness and weakness and was evaluated at the emergency room with a temperature of more than 102 degrees Fahrenheit. He had evidence of sepsis syndrome and was admitted to the hospital for further management. CT scan of the abdomen and pelvis showed a contained perforation of the main tumor mass into but no free air in the peritoneum. He had evidence of progressive disease in the liver, initial tumor bed as well as a new lesion in the bone. Attempts were made to transfer him to [facility] or [facility] in [place], but after evaluating the CT scans of the abdomen and pelvis, recommendation was that he is not a surgical candidate. Hence the admission to [facility] for continued antibiotic therapy and supportive care. Oncology consultation was requested for concurrent followup. PAST MEDICAL HISTORY: Significant for hypercholesterolemia and psoriasis. PRIOR SURGERIES: Left inguinal hernia repair, fracture of the arm requiring open reduction and internal fixation, tendon repair in the thumb. Skin graft from the right foot and a gastric sleeve. SOCIAL HISTORY: The patient is and lives in [place], [place]. He has two daughters, one of whom lives in [place] and the other in [place], [place]. 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 He has 40+ pack year history of tobacco use but quit smoking when he was diagnosed with cancer. He is using smokeless tobacco until admission. He has used alcohol socially but denied any alcohol use since the diagnosis. No history of recreational drug use. PHYSICAL EXAMINATION: GENERAL: Today showed middle-aged male, well-developed, well-nourished, awake and oriented, in no acute distress. VITAL SIGNS: Temperature at the time of evaluation was 36.6 degrees centigrade, pulse rate of 96, respirations 18, blood pressure 161/80 with oxygen saturation of 95% on room air. T-max at the time of admission was 39.2 degrees centigrade, pulse rate of 138, and blood pressure 156/89. HEENT: Normocephalic, extraocular muscles intact, conjunctivae pink, oral mucosa moist. NECK: Supple, with no JVD. No cervical, supraclavicular or axillary lymphadenopathy palpable. CHEST: Symmetrical with a . LUNGS: Fairly clear to auscultation without wheezes or rales. CARDIOVASCULAR: Regular in rate and rhythm. No murmurs or gallops heard. ABDOMEN: Soft with mild tenderness in the lower abdominal area without guarding or rebound. No definite hepatosplenomegaly or other masses palpable. EXTREMITIES: Showed no edema. NEUROLOGIC: Showed no focal motor deficits. LABORATORY DATA: CBC done today showed WBC 14.6, hemoglobin 9.8, platelet count 187 with neutrophil count of 12.2, lymphocyte count 0.7 and monocyte count 1.6. Chemistry panel showed sodium level of 128 and potassium 3.4. BUN was 15 and creatinine 0.77 with GFR 105 mL per minute. Liver function studies done at the time of admission showed total bilirubin of 0.9, AST 199, ALT 56 and alkaline phosphatase 377. Procalcitonin was elevated at 19.89. Serum LDH was markedly elevated at 9007. Lactic acid was elevated at 3.[address] scan of the abdomen and pelvis done at the emergency room showed extensive metastatic disease within the liver, which has progressed compared to the previous studies from 01/04/2021. The retroperitoneal lymphadenopathy as well as right lower quadrant metastatic implants have increased in size. There is a sclerotic lesion in T11, which is new from previous examination. The mass in the sigmoid colon has increased in size and likely is associated with a contained perforation. There is no marli intraperitoneal perforation. The ileum is tethered to the mass with a gas tract extending from the mass to the ileum consistent with an enterocolic fistula. There is no bowel obstruction. Thank you for allowing me to participate in this patient's care. I will follow the patient with you and make appropriate recommendations. Job ID: [id number] DocumentID: [id number] Dictated Date: 02/26/2021 18:55:16 Hr Administrative Assistant Date: 02/27/2021 01:26:00 Dictated By: DAREK RADER MD
[2021-02-27 03:12] VITALS: BP 156/92
[2021-02-27] MEDS: NS IV 1000 ML 1,000 ML IV SCH ×4 (03:13→22:02)
[2021-02-27] MEDS: PIPERACILLIN/TAZO 4.5 GM/NS 100 ML IV SCH ×6 (04:36→19:22)
[2021-02-27 07:12] VITALS: BP 147/78
[2021-02-27] MEDS: morphine INJ 10 MG/ML 1ML (SYR OR VIAL) IV PRN (07:45)
[2021-02-27] MEDS: morphine ER 15 MG (MS CONTIN) TAB PO SCH ×2 (07:45→19:22)
--- NOTE | 2021-02-27 08:03 | Progress Note - Surgery ---
DEBORA SYKES 02/27/21 0803: Subjective Date Seen by a Provider: Feb 27, 2021 Time Seen by a Provider: 07:25 Subjective/Events-last exam Pt reports feeling better today and tenderness decreased since yesterday. Abdomen still distended, hard, and diffusely tender. Denies any fever, chills, nausea, vomiting, diarrhea, or chest pain. Focused Exam Lactate Level 02/26/21 04:36: Lactic Acid Level 2.20*H 02/26/21 07:15: Lactic Acid Level 2.19*H 02/26/21 10:20: Lactic Acid Level 2.51*H Objective Exam Vital Signs Date Time Temp Pulse Resp B/P (MAP) Pulse Ox O2 Delivery O2 Flow Rate FiO2 02/27/21 07:12 36.2 94 18 147/78 (101) 97 Room Air 02/27/21 07:02 Room Air 02/27/21 03:12 36.5 93 20 156/92 (113) 93 Room Air 02/27/21 00:09 36.4 98 16 151/90 (110) 94 Room Air 02/26/21 20:31 Room Air 02/26/21 20:00 36.0 101 20 161/91 (114) 96 Room Air 02/26/21 15:30 36.6 96 18 161/80 (107) 95 Room Air 02/26/21 12:00 35.8 98 16 164/93 (116) 94 Room Air 02/26/21 11:26 Room Air 02/26/21 08:30 89 18 145/83 93 Room Air I & O 02/27/21 07:00 Intake Total 3415 ml Balance 3415 ml Capillary Refill : Less Than 3 Seconds General Appearance: No Apparent Distress, WD/WN HEENT: PERRL/EOMI; No Scleral Icterus (L), No Scleral Icterus (R) Neck: Non Tender, Supple Respiratory: Chest Non Tender, Lungs Clear, No Accessory Muscle Use, No Respiratory Distress Cardiovascular: Regular Rate, Rhythm Peripheral Pulses: 2+ Radial Pulses (R), 2+ Radial Pulses (L) Gastrointestinal: distended, tenderness (Diffuse) Extremity: Normal Capillary Refill, Non Tender, No Calf Tenderness, No Pedal Edema Neurologic/Psychiatric: Alert, Oriented x3, Normal Mood/Affect Skin: Normal Color, Warm/Dry Results Lab Laboratory Tests 02/26/21 10:20: Activated Partial Thromboplast Time 56H, Lactic Acid Level 2.51*H 02/26/21 15:18: Activated Partial Thromboplast Time 81H 02/26/21 22:45: Activated Partial Thromboplast Time 64H 02/27/21 04:56: Activated Partial Thromboplast Time 64H Microbiology 02/25/21 Urine Culture - Final, Complete NO GROWTH Assessment/Plan Assessment/Plan Assessment/Plan 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 He states his abdomen still distended but having less pain. Patient is still passing gas. Patient is tolerating liquids. He has no nausea vomiting fever sweats chills shortness of breath or chest pain at this time. 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 Continue current medical management Consider palliative care we discussed from a surgical standpoint there is nothing currently that would be beneficial in my opinion. Patient understands. Patient understands overall prognosis is poor. Supervisory-Addendum Brief Verification & Attestation Participated in pt care: history, MDM, physical Personally performed: exam, history, MDM, supervision of care Care discussed with: Medical Student Procedures: n/a Results interpretation: Verified all documentation Verification and Attestation of Medical Student E/M Service A medical student performed and documented this service in my presence. I reviewed and verified all information documented by the medical student and made modifications to such information, when appropriate. I personally performed the physical exam and medical decision making. Michael Gallegos, Feb 27, 2021,21:59 DEBORA SYKES Feb 27, 2021 08:03 MICHAEL GALLEGOS DO Feb 27, 2021 21:59
[2021-02-27 11:24] LABS: HEMATOCRIT 27 % (40-54); HEMOGLOBIN 8.7 g/dL (13.3-17.7); MEAN CORPUSCULAR HEMOGLOBIN 27 pg (25-34); MEAN CORPUSCULAR HGB CONC 32 g/dL (32-36); MEAN CORPUSCULAR VOLUME 84 fL (80-99); MEAN PLATELET VOLUME 9.6 fL (9.0-12.2); PLATELET COUNT 208 10^3/uL (130-400); WHITE BLOOD COUNT 7.9 10^3/uL (4.3-11.0)
[2021-02-27 11:37] VITALS: BP 147/85
[2021-02-27 11:43] LABS: CALCIUM 8.2 MG/DL (8.5-10.1); CREATININE SERUM 0.7 MG/DL (0.60-1.30); POTASSIUM 3.3 MMOL/L (3.6-5.0)
--- NOTE | 2021-02-27 14:18 | Progress Note - Hospitalist ---
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 He states that it started either the or the . He then developed a fever and was very weak. He was hardly able to get out of bed prompting his to bring him to the emergency department yesterday. On arrival to the ER he was found to be febrile with a temperature of 39 was quite tachycardic with a heart rate of 138. Imaging of his abdomen revealed a contained sigmoid perforation where he has his known sigmoid mass. It also revealed worsening of his metastatic disease. He has been on chemo since August 2020 when he was diagnosed and recently began a clinical trial. Due to be perforation and disease burden transfer was attempted to where he follows with oncology but surgery reviewed the images and declined to accept him and states that he was not a surgical candidate. Family was unwilling to go anywhere for intervention and transfer was attempted at [place] and [facility] in [place]. [place] was on diversion and [facility] reviewed his films and agreed that he is not a surgical candidate. He was admitted here for conservative management. He states he is feeling much better his pain is improved. He is no longer febrile. He is understanding of the precarious situation he is in should his abdominal exam worsen or we are not able to treat his infection. Subjective/Events-last exam Pt reports feeling better today. No complaints. Abd pain improving. Would like to advance diet if able. Focused Exam Lactate Level 02/26/21 04:36: Lactic Acid Level 2.20*H 02/26/21 07:15: Lactic Acid Level 2.19*H 02/26/21 10:20: Lactic Acid Level 2.51*H Objective Exam Vital Signs Vital Signs Date Time Temp Pulse Resp B/P (MAP) Pulse Ox O2 Delivery O2 Flow Rate FiO2 02/27/21 11:37 36.8 84 16 147/85 (105) 96 Room Air Capillary Refill : Less Than 3 Seconds General Appearance: No Apparent Distress, WD/WN Respiratory: Lungs Clear, No Respiratory Distress Cardiovascular: Regular Rate, Rhythm, No Murmur Gastrointestinal: Normal Bowel Sounds, Non Tender, Soft Neurologic/Psychiatric: Alert, Oriented x3 Results/Procedures Lab Laboratory Tests 9/22/21 11:10 Patient resulted labs reviewed. 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 Attempted transfer to tertiary facilities and all said he is not a surgical candidate Will attempt to manage medically Zosyn Cultures pending, 1 with anaeorobic gram positive rods Surgery and Oncology consulted, appreciate recs Defer home chemo meds to Dr Lundberg- on hold for now per his recs and [facility] Continue home pain meds with IV Morphine for breakthrough Portal Vein Thrombosis Currently on heparin gtt, will switch to Eliquis Dr Lundberg consulted [facility] Hold home statin DVT ppx: heparin gtt Diagnosis/Problems Diagnosis/Problems (1) 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
[2021-02-27 15:51] VITALS: BP 140/82
--- NOTE | 2021-02-27 17:28 | Progress Note ---
Standard Progress Note Progress Notes/Assess & Plan Date Seen by a Provider: Feb 27, 2021 Time Seen by a Provider: 17:20 Progress/Assessment & Plan 56-year-old male with large cell neuroendocrine carcinoma of the colon, status post chemotherapy with carboplatin and etoposide regimen x4 with concurrent radiation therapy with improvement in pelvic disease but progression in liver metastasis. Enrolled in [employer] trial and found to have BRAF [id number] mutation. Patient started treatment with dabrafenib and trametinib approximately 6 weeks ago with clinical improvement in pain and abdominal distention. Presented to the ER with febrile illness and abdominal pain. CT scans in ER with evidence of progressive disease in the liver/lymph nodes and a contained perforation at the sigmoid colon tumor site. Patient had features of sepsis syndrome on admission and started on broad-spectrum antibiotic therapy. Blood cultures growing gram- positive arcelia suspected to be Clostridium with ID and sensitivity pending. Patient has been afebrile and white count improved to normal range today. He was taking clear liquids until yesterday and started on thick liquids today. He is tolerating this. He has been taken off clinical trial. I discussed his poor prognosis with the patient and his family and answered their questions. He wants to be maintained as a DNR but continue the antibiotic therapy and treatment for sepsis. If he stabilizes and is discharged home, we will look at obtaining dabrafenib/trametinib on a compassionate use basis. Only other option would be immunotherapy as the PD-L1 was positive at 5%. I have discussed this plan with Dr. Morgan also who concurs. Overall prognosis is guarded. I will be out of town until next week. Focused Exam Lactate Level 02/26/21 04:36: Lactic Acid Level 2.20*H 02/26/21 07:15: Lactic Acid Level 2.19*H 02/26/21 10:20: Lactic Acid Level 2.51*H DAREK RADER Feb 27, 2021 17:28
[2021-02-27 19:30] VITALS: BP 159/80
[2021-02-27] MEDS: APIXABAN 5 MG (ELIQUIS) TABLET PO SCH (20:48)
[2021-02-28] VITALS (7 sets, daily range): BP systolic 150–168; BP diastolic 81–90
[2021-02-28] MEDS: PIPERACILLIN/TAZO 4.5 GM/NS 100 ML IV SCH ×6 (05:19→19:32)
[2021-02-28 05:29] LABS: HEMATOCRIT 27 % (40-54); HEMOGLOBIN 8.3 g/dL (13.3-17.7); MEAN CORPUSCULAR HEMOGLOBIN 26 pg (25-34); MEAN CORPUSCULAR HGB CONC 31 g/dL (32-36); MEAN CORPUSCULAR VOLUME 83 fL (80-99); MEAN PLATELET VOLUME 9.2 fL (9.0-12.2); PLATELET COUNT 172 10^3/uL (130-400); WHITE BLOOD COUNT 6.1 10^3/uL (4.3-11.0)
[2021-02-28 05:59] LABS: POTASSIUM 3.2 MMOL/L (3.6-5.0)
[2021-02-28] MEDS ORDERED: KCL 20 MEQ TAB (K-DUR) PO ONE ×2 (06:00→08:00)
[2021-02-28] MEDS: KCL 20 MEQ TAB (K-DUR) PO SCH (06:02)
[2021-02-28] MEDS: POTASSIUM CL 10MEQ/50ML IVPB 50 ML IV SCH (06:02)
[2021-02-28 06:04] LABS: CREATININE SERUM 0.68 MG/DL (0.60-1.30)
[2021-02-28 06:07] LABS: MAGNESIUM 1.8 MG/DL (1.6-2.4)
[2021-02-28] MEDS: MAGNESIUM 1 GM/100 ML IVPB 100 ML IV SCH (06:19)
[2021-02-28] MEDS: morphine ER 15 MG (MS CONTIN) TAB PO SCH ×2 (08:26→19:32)
[2021-02-28] MEDS: APIXABAN 5 MG (ELIQUIS) TABLET PO SCH ×2 (08:26→19:32)
--- NOTE | 2021-02-28 10:24 | Progress Note - Hospitalist ---
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 He states that it started either the or the . He then developed a fever and was very weak. He was hardly able to get out of bed prompting his to bring him to the emergency department yesterday. On arrival to the ER he was found to be febrile with a temperature of 39 was quite tachycardic with a heart rate of 138. Imaging of his abdomen revealed a contained sigmoid perforation where he has his known sigmoid mass. It also revealed worsening of his metastatic disease. He has been on chemo since August 2020 when he was diagnosed and recently began a clinical trial. Due to be perforation and disease burden transfer was attempted to where he follows with oncology but surgery reviewed the images and declined to accept him and states that he was not a surgical candidate. Family was unwilling to go anywhere for intervention and transfer was attempted at [place] and [facility] in [place]. [place] was on diversion and [facility] reviewed his films and agreed that he is not a surgical candidate. He was admitted here for conservative management. He states he is feeling much better his pain is improved. He is no longer febrile. He is understanding of the precarious situation he is in should his abdominal exam worsen or we are not able to treat his infection. Subjective/Events-last exam Pt reports doing well. Pain improved. Tolerating diet. Focused Exam Lactate Level 02/26/21 04:36: Lactic Acid Level 2.20*H 02/26/21 07:15: Lactic Acid Level 2.19*H 02/26/21 10:20: Lactic Acid Level 2.51*H Objective Exam Vital Signs Vital Signs Date Time Temp Pulse Resp B/P (MAP) Pulse Ox O2 Delivery O2 Flow Rate FiO2 02/28/21 08:02 36.8 100 19 164/90 (114) 95 Room Air Capillary Refill : Less Than 3 Seconds General Appearance: No Apparent Distress, WD/WN Cardiovascular: Regular Rate, Rhythm, No Murmur Gastrointestinal: Normal Bowel Sounds, Non Tender, Soft Neurologic/Psychiatric: Alert, Oriented x3, Normal Mood/Affect Results/Procedures Lab Laboratory Tests 02/27/21 11:10 02/28/21 05:20 Patient resulted labs reviewed. 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 Attempted transfer to tertiary facilities and all said he is not a surgical candidate Zosyn Cultures pending, 1 with anaeorobic gram positive rods probably clostridium Surgery and Oncology consulted, appreciate recs Defer home chemo meds to Dr Lundberg- on hold for now per his recs and [facility] Continue home pain meds with IV Morphine for breakthrough DC IVF Hopefully home tomorrow if he continues to do well Portal Vein Thrombosis Continue Eliquis Dr Lundberg consulted [facility] Hold home statin DVT ppx: heparin gtt Diagnosis/Problems Diagnosis/Problems (1) 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
[2021-02-28] MEDS ORDERED: ONDANSETRON 4 MG (ZOFRAN) ORAL DISSOLVE TAB PO PRN (10:30)
[2021-02-28] MEDS ORDERED: PANTOPRAZOLE 40 MG (PROTONIX) TAB PO NR (15:00)
--- NOTE | 2021-02-28 21:55 | Progress Note - Surgery ---
Subjective Date Seen by a Provider: Feb 28, 2021 Time Seen by a Provider: 17:00 Subjective/Events-last exam Patient sitting with and family. Patient feeling better today. Not having much pain. Feels stomach is bloated. Passing flatus. Tolerating diet. No n/v fever sweats chills shortness of breath or chest pain. Focused Exam Lactate Level 02/26/21 04:36: Lactic Acid Level 2.20*H 02/26/21 07:15: Lactic Acid Level 2.19*H 02/26/21 10:20: Lactic Acid Level 2.51*H Objective Exam Vital Signs Date Time Temp Pulse Resp B/P (MAP) Pulse Ox O2 Delivery O2 Flow Rate FiO2 02/28/21 19:37 37.5 107 20 153/88 (109) 95 Room Air 02/28/21 19:30 Room Air 02/28/21 18:25 95 Room Air 02/28/21 16:10 35.8 98 20 168/90 (116) 95 Room Air 02/28/21 11:17 36.8 96 20 163/90 (114) 96 Room Air 02/28/21 08:02 36.8 100 19 164/90 (114) 95 Room Air 02/28/21 08:00 Room Air 02/28/21 05:02 36.8 94 18 150/87 (108) 95 Room Air 02/28/21 04:00 36.8 94 18 150/87 (108) 95 Room Air 02/28/21 00:00 36.7 88 18 150/81 (104) 94 Room Air I & O 02/28/21 07:00 Intake Total 3830 ml Balance 3830 ml Capillary Refill : Less Than 3 Seconds General Appearance: No Apparent Distress, WD/WN HEENT: PERRL/EOMI, Normal ENT Inspection Neck: Non Tender, Supple Respiratory: Chest Non Tender, No Accessory Muscle Use, No Respiratory Distress Cardiovascular: Regular Rate, Rhythm, No Murmur Peripheral Pulses: 2+ Radial Pulses (R), 2+ Radial Pulses (L) Gastrointestinal: distended, tenderness (Diffuse, minimal) Extremity: Normal Capillary Refill, Non Tender, No Calf Tenderness, No Pedal Edema Neurologic/Psychiatric: Alert, Oriented x3, Normal Mood/Affect Skin: Normal Color, Warm/Dry Lymphatic: No Adenopathy Results Lab Laboratory Tests 02/28/21 05:20: White Blood Count 6.1, Red Blood Count 3.18L, Hemoglobin 8.3L, Hematocrit 27L, Mean Corpuscular Volume 83, Mean Corpuscular Hemoglobin 26, Mean Corpuscular Hemoglobin Concent 31L, Red Cell Distribution Width 17.7H, Platelet Count 172, Mean Platelet Volume 9.2, Activated Partial Thromboplast Time 48H, Sodium Level 130L, Potassium Level 3.2L, Chloride Level 98, Carbon Dioxide Level 21, Anion Gap 11, Blood Urea Nitrogen 6L, Creatinine 0.68, Estimat Glomerular Filtration Rate 121, BUN/Creatinine Ratio 9, Glucose Level 90, Calcium Level 8.0L, Magnesium Level 1.8 Microbiology 02/25/21 Urine Culture - Final, Complete NO GROWTH 02/25/21 Blood Culture - Preliminary, Resulted Clostridium septicum Assessment/Plan Assessment/Plan Assessment/Plan 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 Answered all family questions Patient family understands. Patient and family understands overall prognosis is poor they informed me they were discussing possibility of hospice. I informed them if they would like to get more information on hospice to inform patient nurse and we would be able to get more information to them. MICHAEL ZAMORANO DO Feb 28, 2021 21:55
[2021-03-01] VITALS: BP 166/98
[2021-03-01 04:10] VITALS: BP 150/89
[2021-03-01] MEDS: PIPERACILLIN/TAZO 4.5 GM/NS 100 ML IV SCH ×2 (05:01)
[2021-03-01 05:13] LABS: HEMATOCRIT 28 % (40-54); HEMOGLOBIN 9.1 g/dL (13.3-17.7); MEAN CORPUSCULAR HEMOGLOBIN 27 pg (25-34); MEAN CORPUSCULAR HGB CONC 32 g/dL (32-36); MEAN CORPUSCULAR VOLUME 83 fL (80-99); MEAN PLATELET VOLUME 8.9 fL (9.0-12.2); PLATELET COUNT 190 10^3/uL (130-400); WHITE BLOOD COUNT 6.5 10^3/uL (4.3-11.0)
[2021-03-01 05:30] LABS: POTASSIUM 3.6 MMOL/L (3.6-5.0)
[2021-03-01 05:31] LABS: CALCIUM 8.3 MG/DL (8.5-10.1)
[2021-03-01 05:35] LABS: CREATININE SERUM 0.73 MG/DL (0.60-1.30)
[2021-03-01 05:38] LABS: MAGNESIUM 1.8 MG/DL (1.6-2.4)
[2021-03-01] MEDS: POTASSIUM CL 10MEQ/50ML IVPB 50 ML IV SCH (05:39)
[2021-03-01] MEDS: MAGNESIUM 1 GM/100 ML IVPB 100 ML IV SCH (05:39)
[2021-03-01] MEDS: KCL 20 MEQ TAB (K-DUR) PO SCH (05:43)
[2021-03-01 07:52] VITALS: BP 164/101
--- NOTE | 2021-03-01 07:58 | Progress Note - Surgery ---
Subjective Date Seen by a Provider: Mar 01, 2021 Time Seen by a Provider: 07:05 Subjective/Events-last exam Pt complains of fluid build up and bilateral pedal edema. Denies any fever, chills, nausea, vomiting, diarrhea, or chest pain. Expects to be discharged to home today. Focused Exam Lactate Level 02/26/21 10:20: Lactic Acid Level 2.51*H Objective Exam Vital Signs Date Time Temp Pulse Resp B/P (MAP) Pulse Ox O2 Delivery O2 Flow Rate FiO2 03/01/21 04:10 35.9 99 17 150/89 (109) 96 Room Air 03/01/21 00:00 36.2 98 17 166/98 (120) 95 Room Air 02/28/21 19:37 37.5 107 20 153/88 (109) 95 Room Air 02/28/21 19:30 Room Air 02/28/21 18:25 95 Room Air 02/28/21 16:10 35.8 98 20 168/90 (116) 95 Room Air 02/28/21 11:17 36.8 96 20 163/90 (114) 96 Room Air 02/28/21 08:02 36.8 100 19 164/90 (114) 95 Room Air 02/28/21 08:00 Room Air I & O 03/01/21 07:00 Intake Total 2440 ml Balance 2440 ml Capillary Refill : Less Than 3 Seconds General Appearance: No Apparent Distress, WD/WN HEENT: PERRL/EOMI Neck: Non Tender, Supple Respiratory: Chest Non Tender, No Accessory Muscle Use, No Respiratory Distress Cardiovascular: Regular Rate, Rhythm Peripheral Pulses: 2+ Radial Pulses (R), 2+ Radial Pulses (L) Gastrointestinal: No soft; distended Extremity: Normal Capillary Refill, Non Tender, No Calf Tenderness, Pedal Edema Neurologic/Psychiatric: Alert, Oriented x3, Normal Mood/Affect Skin: Normal Color, Warm/Dry Results Lab Laboratory Tests 03/01/21 05:05: White Blood Count 6.5, Red Blood Count 3.40L, Hemoglobin 9.1L, Hematocrit 28L, Mean Corpuscular Volume 83, Mean Corpuscular Hemoglobin 27, Mean Corpuscular He moglobin Concent 32, Red Cell Distribution Width 17.9H, Platelet Count 190, Mean Platelet Volume 8.9L, Sodium Level 127L, Potassium Level 3.6, Chloride Level 98, Carbon Dioxide Level 19L, Anion Gap 10, Blood Urea Nitrogen 4L, Creatinine 0.73, Estimat Glomerular Filtration Rate 111, BUN/Creatinine Ratio 5, Glucose Level 102, Calcium Level 8.3L, Magnesium Level 1.8 Microbiology 02/25/21 Urine Culture - Final, Complete NO GROWTH 02/25/21 Blood Culture - Preliminary, Resulted Clostridium septicum Assessment/Plan Assessment/Plan Assessment/Plan 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 DEBORA SYKES Mar 01, 2021 07:58
[2021-03-01] MEDS: morphine ER 15 MG (MS CONTIN) TAB PO SCH (08:40)
[2021-03-01] MEDS: APIXABAN 5 MG (ELIQUIS) TABLET PO SCH (08:40)
[2021-03-01] MEDS ORDERED: PANTOPRAZOLE 40 MG (PROTONIX) TAB PO SCH (09:00)
[2021-03-01] MEDS ORDERED: AMOX-358 PO (09:16)
[2021-03-01] MEDS ORDERED: LACT1CAP62 PO (09:16)
[2021-03-01] MEDS ORDERED: DABR75CA PO (09:16)
[2021-03-01] MEDS ORDERED: APIX5TAB PO (09:16)
[2021-03-01] MEDS ORDERED: TRAM2TAB PO (09:16)
--- NOTE | 2021-03-01 09:18 | Discharge Inst-Simple/Standard ---
Discharge Inst-Standard Discharge Medications New, Converted or Re-Newed RX: Transmitted to Pharmacy Patient Instructions/Follow Up Plan of Care/Instructions/FU: Please continue to take your medications as written. Please follow up with your primary care doctor to follow up this hospital stay and with Dr Gallegos and Dr Lundberg as recommended Activity as Tolerated: Yes Discharge Diet: Soft Diet Return to The Hospital For: Abdominal pain, fever, confusion, weakness, bloating, chest pain, shortness of breath, if you feel you are getting worse. OFELIA GUZMAN MD Mar 01, 2021 09:18
--- NOTE | 2021-03-01 09:19 | Discharge Summary ---
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 Status: Acute (2) Perforation of sigmoid colon Status: Acute (3) Neuroendocrine carcinoma metastatic to liver Status: Acute (4) Neuroendocrine carcinoma metastatic to multiple sites Status: Acute (5) Sepsis Status: Acute Discharge Summary Discharge Physical Exam Allergies: Coded Allergies: eucalyptus (Verified Allergy, Unknown, 09/06/20) Vitals & I&Os Vital Signs Date Time Temp Pulse Resp B/P (MAP) Pulse Ox O2 Delivery O2 Flow Rate FiO2 03/01/21 12:20 36.4 84 18 165/94 95 Room Air General Appearance: No Apparent Distress, Chronically ill Cardiovascular: Regular Rate, Rhythm, No Murmur Gastrointestinal: Normal Bowel Sounds, Non Tender, Soft Neurologic/Psychiatric: Alert, Oriented x3 Hospital Course She was admitted to the hospital due to severe sepsis secondary to perforated bowel near his sigmoid mass. Imaging also revealed progression of his metastatic cancer. The ER attempted to transfer the patient for surgery and he was declined at [facility]. He was admitted here for conservative measures. He was treated with IV antibiotics. Oncology and surgery were both consulted. He did very well and was able to be discharged home on a soft diet with oral antibiotics. At this time his cancer medicine is on hold and it is unclear if he will be able to enroll back in his clinical trial. He is to follow-up with Dr. Burroughs regarding this. I did call and update his primary care doctor, Dr. CALZADA, regarding his admission. Labs (last 24 hrs) Microbiology 02/25/21 Urine Culture - Final, Complete NO GROWTH 02/25/21 Blood Culture - Final, Complete Clostridium septicum Patient resulted labs reviewed. Pending Labs Discussion & Recommendations Discharge Planning: >30 minutes discharge planning Discharge Home Medications: Active Scripts Active Probiotic (Lactobacillus Acidophilus) 1 Each Capsule 1 Each PO TID Augmentin 875-125 Tablet (Amoxicillin/Potassium Clav) 1 Each Tablet 1 Each PO BID Eliquis (Apixaban) 5 Mg Tablet 5 Mg PO BID 30 Days TAKE 2 TABLETS BID X 7 DAYS, THEN 1 TABLET BID [place] (Trametinib Dimethyl Sulfoxide) 2 Mg Tablet 2 Mg PO 2000 TAKES ON AN EMPTY STOMACH Resume whenever Dr Lundberg indicates Tafinlar (Dabrafenib Mesylate) 75 Mg Capsule 150 Mg PO 0800,1999 TAKES ON AN EMPTY STOMACH TAKES 2 (75MG) CAPS Resume whenever Dr Lundberg indicates Reported Ondansetron HCl 8 Mg Tablet 8 Mg PO Q8H PRN Multivitamin 1 Each Tablet 1 Each PO DAILY Docusate Sodium 100 Mg Capsule 100 Mg PO BID PRN Oxycodone HCl 10 Mg Tablet 10 Mg PO Q4H PRN Morphine Sulfate ER (Morphine Sulfate) 15 Mg Tablet.er 15 Mg PO Q12H Vitamin D3 (Cholecalciferol (Vitamin D3)) 25 Mcg Capsule 25 Mcg PO DAILY Miralax (Polyethylene Glycol 3350) 17 Gm Powd.pack 17 Gm PO HS Lovastatin 40 Mg Tablet 40 Mg PO HS Vitamin B Complex 1 Each Capsule 1 Each PO DAILY Instructions to patient/family Please see electronic discharge instructions given to patient. Copy Copies To 1: SHAYAN CALZADA DO Problem Qualifiers (1) Sepsis: Sepsis type: sepsis due to unspecified organism Sepsis acute organ dysfunction status: with acute organ dysfunction Severe sepsis acute organ dysfunction type: unspecified Severe sepsis shock status: without septic shock Qualified Codes: A41.9 - Sepsis, unspecified organism; R65.20 - Severe sepsis without septic shock OFELIA GUZMAN MD Mar 01, 2021 09:19
[2021-03-01 11:46] VITALS: BP 165/94
[2021-03-01 12:20] VITALS: BP 165/94
[2021-03-06] MEDS ORDERED: APIXABAN 5 MG (ELIQUIS) TABLET PO SCH (21:00)
== END 2021-03-01 12:20 | disposition home or self-care (01) | DRG 871 ==
LOC: EDUNIT# 15:32 → ER 15:33 → 4TH 02-26 06:52
PROVIDERS: ADMIT Family Medicine; ATTEND Family Medicine
DX: A41.9 Sepsis, unspecified organism (principal); K63.1 Perforation of intestine (nontraumatic); I81 Portal vein thrombosis; C7A.8 Other malignant neuroendocrine tumors; C7B.8 Other secondary neuroendocrine tumors; K63.2 Fistula of intestine; E87.1 Hypo-osmolality and hyponatremia; Z66 Do not resuscitate; R65.20 Severe sepsis without septic shock; E78.00 Pure hypercholesterolemia, unspecified; L40.9 Psoriasis, unspecified; E78.5 Hyperlipidemia, unspecified; Z87.891 Personal history of nicotine dependence; Z79.899 Other long term (current) drug therapy; Z92.3 Personal history of irradiation; Z92.21 Personal history of antineoplastic chemotherapy
CPT/HCPCS: 36415; 71045; 74177; 80048; 80053; 81000; 83605; 83615; 83735; 84145; 85007; 85025; 85027; 85610; 85730; 86141; 87040; 87077; 87088; 94760; 96365; 96366; 96375; 96376

== ENCOUNTER 2021-03-04 14:23 | Outpatient (RCR) | payer OTHER ==
[2020-12-31 12:59] LABS: ABSOLUTE RETIC # 83 10e9/uL (24-90); BASOPHILS % (AUTO) 0 % (0-10); EOSINOPHILS # (AUTO) 0.2 10^3/uL (0.0-0.3); EOSINOPHILS % (AUTO) 2 % (0-10); HEMATOCRIT 29 % (40-54); HEMOGLOBIN 9.1 g/dL (13.3-17.7); LYMPHOCYTES # (AUTO) 0.4 10^3/uL (1.0-4.0); LYMPHOCYTES % (AUTO) 4 % (12-44); MEAN CORPUSCULAR HEMOGLOBIN 29 pg (25-34); MEAN CORPUSCULAR HGB CONC 31 g/dL (32-36); MEAN CORPUSCULAR VOLUME 95 fL (80-99); MEAN PLATELET VOLUME 8.8 fL (9.0-12.2); MONOCYTES # (AUTO) 1.4 10^3/uL (0.0-1.0); MONOCYTES % (AUTO) 13 % (0-12); NEUTROPHILS # (AUTO) 8.5 10^3/uL (1.8-7.8); NEUTROPHILS % (AUTO) 80 % (42-75); PLATELET COUNT 323 10^3/uL (130-400); RETICULOCYTE % 2.67 % (0.50-2.40); WHITE BLOOD COUNT 10.6 10^3/uL (4.3-11.0)
[2020-12-31 13:27] LABS: ALBUMIN 3.7 GM/DL (3.2-4.5); BILIRUBIN,TOTAL 0.3 MG/DL (0.1-1.0); CALCIUM 9.4 MG/DL (8.5-10.1); CREATININE SERUM 0.94 MG/DL (0.60-1.30); TOTAL PROTEIN 7.5 GM/DL (6.4-8.2)
[2021-01-04 11:39] LABS: INR 1.2 (0.8-1.4); PROTHROMBIN TIME PATIENT 15.1 SEC (12.2-14.7)
[2021-01-18 12:27] LABS: BASOPHILS # (AUTO) 0.1 10^3/uL (0.0-0.1); BASOPHILS % (AUTO) 0 % (0-10); EOSINOPHILS # (AUTO) 0.1 10^3/uL (0.0-0.3); EOSINOPHILS % (AUTO) 0 % (0-10); HEMATOCRIT 31 % (40-54); HEMOGLOBIN 9.5 g/dL (13.3-17.7); LYMPHOCYTES # (AUTO) 0.5 10^3/uL (1.0-4.0); LYMPHOCYTES % (AUTO) 2 % (12-44); MEAN CORPUSCULAR HEMOGLOBIN 28 pg (25-34); MEAN CORPUSCULAR HGB CONC 31 g/dL (32-36); MEAN CORPUSCULAR VOLUME 91 fL (80-99); MEAN PLATELET VOLUME 9.8 fL (9.0-12.2); MONOCYTES # (AUTO) 2.7 10^3/uL (0.0-1.0); MONOCYTES % (AUTO) 8 % (0-12); NEUTROPHILS # (AUTO) 27.9 10^3/uL (1.8-7.8); NEUTROPHILS % (AUTO) 88 % (42-75); PLATELET COUNT 262 10^3/uL (130-400)
[2021-01-18 12:28] LABS: WHITE BLOOD COUNT 31.7 10^3/uL (4.3-11.0)
[2021-01-18 12:57] LABS: ALBUMIN 3.3 GM/DL (3.2-4.5); BILIRUBIN,TOTAL 1.5 MG/DL (0.1-1.0); CREATININE SERUM 0.99 MG/DL (0.60-1.30); MAGNESIUM 2.2 MG/DL (1.6-2.4); TOTAL PROTEIN 6.9 GM/DL (6.4-8.2)
[2021-01-24 12:14] LABS: BASOPHILS % (AUTO) 0 % (0-10); EOSINOPHILS # (AUTO) 0.1 10^3/uL (0.0-0.3); EOSINOPHILS % (AUTO) 1 % (0-10); HEMATOCRIT 28 % (40-54); HEMOGLOBIN 8.6 g/dL (13.3-17.7); LYMPHOCYTES # (AUTO) 0.7 10^3/uL (1.0-4.0); LYMPHOCYTES % (AUTO) 6 % (12-44); MEAN CORPUSCULAR HEMOGLOBIN 28 pg (25-34); MEAN CORPUSCULAR HGB CONC 31 g/dL (32-36); MEAN CORPUSCULAR VOLUME 91 fL (80-99); MEAN PLATELET VOLUME 9.8 fL (9.0-12.2); MONOCYTES # (AUTO) 1.3 10^3/uL (0.0-1.0); MONOCYTES % (AUTO) 11 % (0-12); NEUTROPHILS % (AUTO) 76 % (42-75); PLATELET COUNT 237 10^3/uL (130-400); WHITE BLOOD COUNT 11.9 10^3/uL (4.3-11.0)
[2021-01-24 12:31] LABS: ALBUMIN 2.9 GM/DL (3.2-4.5); BILIRUBIN,TOTAL 0.5 MG/DL (0.1-1.0); CALCIUM 8.6 MG/DL (8.5-10.1); CREATININE SERUM 0.77 MG/DL (0.60-1.30); POTASSIUM 4.1 MMOL/L (3.6-5.0); TOTAL PROTEIN 6.2 GM/DL (6.4-8.2)
[2021-01-31 10:11] LABS: BASOPHILS # (AUTO) 0.1 10^3/uL (0.0-0.1); BASOPHILS % (AUTO) 1 % (0-10); EOSINOPHILS # (AUTO) 0.1 10^3/uL (0.0-0.3); EOSINOPHILS % (AUTO) 2 % (0-10); HEMATOCRIT 31 % (40-54); HEMOGLOBIN 9.1 g/dL (13.3-17.7); LYMPHOCYTES # (AUTO) 0.5 10^3/uL (1.0-4.0); LYMPHOCYTES % (AUTO) 6 % (12-44); MEAN CORPUSCULAR HEMOGLOBIN 27 pg (25-34); MEAN CORPUSCULAR HGB CONC 29 g/dL (32-36); MEAN CORPUSCULAR VOLUME 91 fL (80-99); MEAN PLATELET VOLUME 9.3 fL (9.0-12.2); MONOCYTES % (AUTO) 12 % (0-12); NEUTROPHILS # (AUTO) 6.6 10^3/uL (1.8-7.8); NEUTROPHILS % (AUTO) 80 % (42-75); PLATELET COUNT 265 10^3/uL (130-400); WHITE BLOOD COUNT 8.3 10^3/uL (4.3-11.0)
[2021-01-31 10:46] LABS: ALBUMIN 3.6 GM/DL (3.2-4.5); BILIRUBIN,TOTAL 0.4 MG/DL (0.1-1.0); CALCIUM 9.4 MG/DL (8.5-10.1); CREATININE SERUM 1.09 MG/DL (0.60-1.30); POTASSIUM 3.9 MMOL/L (3.6-5.0); TOTAL PROTEIN 7.7 GM/DL (6.4-8.2)
[2021-02-07 11:11] LABS: BASOPHILS % (AUTO) 1 % (0-10); EOSINOPHILS # (AUTO) 0.1 10^3/uL (0.0-0.3); EOSINOPHILS % (AUTO) 2 % (0-10); HEMATOCRIT 30 % (40-54); HEMOGLOBIN 9.1 g/dL (13.3-17.7); LYMPHOCYTES # (AUTO) 0.5 10^3/uL (1.0-4.0); LYMPHOCYTES % (AUTO) 8 % (12-44); MEAN CORPUSCULAR HEMOGLOBIN 27 pg (25-34); MEAN CORPUSCULAR HGB CONC 30 g/dL (32-36); MEAN CORPUSCULAR VOLUME 89 fL (80-99); MEAN PLATELET VOLUME 9.4 fL (9.0-12.2); MONOCYTES % (AUTO) 16 % (0-12); NEUTROPHILS # (AUTO) 4.6 10^3/uL (1.8-7.8); NEUTROPHILS % (AUTO) 73 % (42-75); PLATELET COUNT 252 10^3/uL (130-400); WHITE BLOOD COUNT 6.3 10^3/uL (4.3-11.0)
[2021-02-07 11:26] LABS: ALBUMIN 3.3 GM/DL (3.2-4.5); BILIRUBIN,TOTAL 0.4 MG/DL (0.1-1.0); CALCIUM 9.1 MG/DL (8.5-10.1); CREATININE SERUM 0.91 MG/DL (0.60-1.30); POTASSIUM 3.6 MMOL/L (3.6-5.0); TOTAL PROTEIN 7.1 GM/DL (6.4-8.2)
[2021-02-15 09:27] LABS: BASOPHILS % (AUTO) 1 % (0-10); EOSINOPHILS # (AUTO) 0.1 10^3/uL (0.0-0.3); EOSINOPHILS % (AUTO) 1 % (0-10); HEMATOCRIT 29 % (40-54); HEMOGLOBIN 8.9 g/dL (13.3-17.7); LYMPHOCYTES # (AUTO) 0.5 10^3/uL (1.0-4.0); LYMPHOCYTES % (AUTO) 11 % (12-44); MEAN CORPUSCULAR HEMOGLOBIN 27 pg (25-34); MEAN CORPUSCULAR HGB CONC 31 g/dL (32-36); MEAN CORPUSCULAR VOLUME 88 fL (80-99); MEAN PLATELET VOLUME 8.7 fL (9.0-12.2); MONOCYTES # (AUTO) 1.1 10^3/uL (0.0-1.0); MONOCYTES % (AUTO) 23 % (0-12); NEUTROPHILS # (AUTO) 2.9 10^3/uL (1.8-7.8); NEUTROPHILS % (AUTO) 63 % (42-75); PLATELET COUNT 246 10^3/uL (130-400); WHITE BLOOD COUNT 4.6 10^3/uL (4.3-11.0)
[2021-02-15 10:02] LABS: ALBUMIN 3.5 GM/DL (3.2-4.5); BILIRUBIN,TOTAL 0.3 MG/DL (0.1-1.0); CALCIUM 9.2 MG/DL (8.5-10.1); CREATININE SERUM 0.77 MG/DL (0.60-1.30); MAGNESIUM 1.9 MG/DL (1.6-2.4); POTASSIUM 3.8 MMOL/L (3.6-5.0); TOTAL PROTEIN 7.2 GM/DL (6.4-8.2)
[2021-02-21 09:50] LABS: BASOPHILS % (AUTO) 1 % (0-10); EOSINOPHILS % (AUTO) 1 % (0-10); HEMATOCRIT 34 % (40-54); HEMOGLOBIN 10.2 g/dL (13.3-17.7); LYMPHOCYTES # (AUTO) 0.5 10^3/uL (1.0-4.0); LYMPHOCYTES % (AUTO) 12 % (12-44); MEAN CORPUSCULAR HEMOGLOBIN 27 pg (25-34); MEAN CORPUSCULAR HGB CONC 30 g/dL (32-36); MEAN CORPUSCULAR VOLUME 88 fL (80-99); MEAN PLATELET VOLUME 9.8 fL (9.0-12.2); MONOCYTES # (AUTO) 0.7 10^3/uL (0.0-1.0); MONOCYTES % (AUTO) 14 % (0-12); NEUTROPHILS # (AUTO) 3.2 10^3/uL (1.8-7.8); NEUTROPHILS % (AUTO) 71 % (42-75); PLATELET COUNT 250 10^3/uL (130-400); WHITE BLOOD COUNT 4.5 10^3/uL (4.3-11.0)
[2021-02-21 10:17] LABS: ALBUMIN 3.8 GM/DL (3.2-4.5); BILIRUBIN,TOTAL 0.4 MG/DL (0.1-1.0); CALCIUM 9.4 MG/DL (8.5-10.1); CREATININE SERUM 0.85 MG/DL (0.60-1.30); TOTAL PROTEIN 7.6 GM/DL (6.4-8.2)
[~2021-03-04] VITALS: Ht 182.9 cm; Wt 103.4 kg
[~2021-03-04 14:23] MED LIST changes: +AMOX-358 PO; +APIX5TAB PO; +CHOL100048 PO; +DABR75CA PO; +DOCU100C37 PO; +LACT1CAP62 PO; +MORP-68 PO; +MULT-1136 PO; +ONDA8TAB15 PO; +OXYC10TA7 PO; +TRAM2TAB PO
[2021-03-07] MEDS ORDERED: PEMBROLIZUMAB 200 MG in NS (IVPB) CANCER CENTER 50 ML IV SCH (09:30)
[2021-03-07] MEDS ORDERED: NS IV 1000 ML (CANCER CTR) IV SCH (09:30)
== END 2021-03-26 | disposition home or self-care (01) ==
LOC: ONC 14:23
PROVIDERS: ATTEND Internal Medicine Hematology & Oncology
DX: Z01.810 Encounter for preprocedural cardiovascular examination (principal); C18.7 Malignant neoplasm of sigmoid colon; C20 Malignant neoplasm of rectum; C78.7 Secondary malignant neoplasm of liver and intrahepatic bile duct; D64.9 Anemia, unspecified; Z92.21 Personal history of antineoplastic chemotherapy
CPT/HCPCS: 36591; 80053; 82728; 83540; 83550; 83615; 83735; 85025; 85045; 85610; 85730; 93005; 99213; 99214